=== PATIENT | female | born 1995 | race Caucasian/White ===

== ENCOUNTER 2022-09-27 08:30 | Emergency (ER) | payer OTHER, SELFPAY ==
[2022-09-27 08:43] VITALS: BP 131/100; PULSE 77; TEMP 36.7; O2SAT 98; BMI 35.6
--- NOTE | 2022-09-27 08:54 | CRLHL7_ITS ---
For Patients: As a result of the Century Cures Act, medical imaging exams and procedure reports are released immediately into your electronic medical record. You may view this report before your referring provider. If you have questions, please contact your health care provider. INDICATION: Left flank pain TECHNIQUE: Axial images were obtained from the diaphragm to the pubic symphysis. Reformats were obtained in the coronal and sagittal plane. IV Contrast: None Oral Contrast: None COMPARISON: None. FINDINGS: Lower chest: Unremarkable. Liver: Unremarkable. Normal in size and attenuation. No masses. Gallbladder and bile ducts: Unremarkable. No stones or inflammation. No biliary dilatation. Spleen: Unremarkable. Normal in size without mass. Pancreas: Unremarkable. No mass or inflammation. Adrenal glands: Unremarkable. No nodules. Kidneys: Nephrolithiasis. 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 Obstructing distal left ureteral stone measuring 5 x 3 millimeters. Vasculature: Unremarkable. GI tract: The stomach is unremarkable. No dilated loops of large or small intestine. Unremarkable appendix. Pelvis: Left ovarian simple cyst measuring 3.5 centimeters. Bones: Unremarkable for age. IMPRESSION: 1. Nephrolithiasis. 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 2. Simple left ovarian cyst measuring 3.5 centimeters. Please note that all CT scans at this facility use dose modulation, iterative reconstruction, and/or weight-based dosing when appropriate to reduce radiation dose to as low as reasonably achievable. Dictated by Jamison Ortega MD @ 09/27/2022 11:25:30 AM (Electronically Signed)
--- NOTE | 2022-09-27 09:09 | ED_ITS ---
HPI - General Adult General Time Seen by Provider: 09:10 Date Seen: 09/27/22 Chief complaint: Flank Pain Stated complaint: L side pain Time Seen by Provider: 09/27/22 08:34 Source: patient Mode of arrival: ambulatory Limitations: no limitations History of Present Illness HPI narrative: Patient is a 27 year white female with a history of kidney stones who presents with left flank pain at about 1 this morning. It has been bothering since, radiates a little bit around the left side to the anterior abdomen, denies . Reports her last menstrual cycle was about 2 and half to 3 weeks ago. She has had no other symptoms no real nausea no vomiting pain has been intermittent waxing waning, talk to find a comfortable position. No hematuria. Related Data Home Medications Medication Instructions Recorded Confirmed tirzepatide 10 mg/0.5 mL 5 mg subcut QWEEK 09/27/22 09/27/22 subcutaneous pen injector (Abigail) Previous Rx's Medication Instructions Recorded hydrocodone 5 mg-acetaminophen 325 1.5 tab PO Q8H PRN pain #20 tabs 09/27/22 mg tablet hydrocodone 7.5 mg-acetaminophen 1 tab PO Q8H PRN pain #14 tabs 09/27/22 325 mg tablet ketorolac 10 mg tablet 10 mg PO Q8H PRN pain 3 days #14 09/27/22 tabs Allergies Allergy/AdvReac Type Severity Reaction Status Date / Time morphinie AdvReac Uncoded 09/27/22 08:42 Review of Systems Status of ROS: Reports: 6 or more systems reviewed and unremarkable except as noted in History and below PFSH PFSH Social History Smoking Status: Never smoker Do you use any of these nicotine containing products: None Second hand tobacco smoke exposure: No How often do you have a drink containing alcohol: never How often do you have six or more drinks on one occasion: Never AUDIT-C Alcohol total score: 0 Non-prescribed substance use: denies use service: No Exam Narrative: Exam Narrative: Objective in no marked distress Vital signs unremarkable other than slightly elevated diastolic pressure HEENT unremarkable Pulse regular Abdomen benign soft nontender and Negative CVA tenderness Extremities normal neurologic nonfocal good peripheral perfusion noted Const: Vital Signs, click to edit/add: Vital Signs - 24 hr 09/27/22 08:43 09/27/22 11:22 09/27/22 12:07 Temperature 98.0 F 98.0 F 98.0 F Pulse Rate [Pulse Oximeter] 77 90 75 Respiratory Rate 16 16 Blood Pressure [Le ft Upper Arm] 131/100 H 134/85 138/68 Pulse Oximetry 98 98 99 Oxygen Delivery Me thod Room Air Room Air Room Air Course Vital Signs Vital signs: Initial Vital Signs Temperature 98.0 F 09/27/22 08:43 Temperature Source Temporal Artery Scan 09/27/22 08:43 Pulse Rate 77 09/27/22 08:43 Pulse Rhythm Regular 09/27/22 08:43 Blood Pressure 131/100 H 09/27/22 08:43 Blood Pressure Mean 110 09/27/22 08:43 Pulse Oximetry 98 09/27/22 08:43 Oxygen Delivery Method Room Air 09/27/22 08:43 Vital Signs Temperature 98.0 F 09/27/22 08:43 Pulse Rate 77 09/27/22 08:43 Blood Pressure 131/100 H 09/27/22 08:43 Pulse Oximetry 98 09/27/22 08:43 Oxygen Delivery Method Room Air 09/27/22 08:43 Temperature 98.0 F 09/27/22 12:07 Pulse Rate 75 09/27/22 12:07 Respiratory Rate 16 09/27/22 12:07 Blood Pressure 138/68 09/27/22 12:07 Pulse Oximetry 99 09/27/22 12:07 Oxygen Delivery Method Room Air 09/27/22 12:07 Medical Decision Making MDM Narrative Medical decision making narrative: 27 year white female with history of left flank pain for several hours duration, history of urolithiasis. Likely recurrent stone. Rule out , rule out electrolyte abnormality urinalysis abnormality, rule out pyelonephritis. Patient will get a CT scan unenhanced abdomen her test is negative. Disposition pending findings. Will give IV Toradol when able and fluid. Lab Data Labs: Lab Results 09/27/22 Range/Units 09:13 WBC 8.50 (4.50-11.00) K/uL RBC 4.37 (4.00-5.20) m/uL Hgb 12.7 (12.0-16.0) gm/dL Hct 39.1 (33.0-51.0) % MCV 90 (80-100) fL MCH 29 (26-34) pg MCHC 33 (32-36) gm/dL RDW Coeff of Margarito 12.2 (11.5-15.5) % Plt Count 249 (140-440) K/uL Neut % (Auto) 80.3 H (42.0-72.0) % Lymph % (Auto) 13.5 L (20-44) % [place] % (Auto) 5.1 (0.0-11.0) % Eos % (Auto) 0.8 (0.0-7.0) % Baso % (Auto) 0.2 (0.0-3.0) % Neut # (Auto) 6.80 (1.7-7.0) K/uL Lymph # (Auto) 1.10 (0.90-2.90) K/uL [place] # (Auto) 0.40 (0.00-0.90) K/UL Eos # (Auto) 0.07 (0.00-0.50) K/uL Baso # (Auto) 0.02 (0.00-0.30) K/uL Sodium 135 (135-149) mmol/L Potassium 4.1 (3.6-5.1) mmol/L Chloride 106 (96-114) mmol/L Carbon Dioxide 21 (20-32) mmol/L BUN 13 (5-24) mg/dL Creatinine 0.7 (0.5-1.5) mg/dL Estimated Creat Clear 141.15 Estimated GFR 120 ml/min Glucose 88 (60-115) mg/dL Calcium 8.7 (8.4-10.6) mg/dL Total Bilirubin 1.0 (0.1-1.5) mg/dL Direct Bilirubin 0.3 (0.0-0.5) mg/dL AST 22 (12-35) U/L ALT 20 (4-35) U/L Alkaline Phosphatase 79 (40-150) U/L C-Reactive Protein 0.8 (0.5-1.0) mg/dL Total Protein 7.5 (6.0-8.3) g/dL Albumin 4.3 (3.3-5.0) g/dL HCG, Quant < 2.39 mIU/mL Urine Color Yellow (Yellow) Urine Appearance Clear (Clear) Urine pH 7.0 (5.0-8.5) Ur Specific [place] 1.025 (1.000-1.030) Urine Protein Negative (Negative) Urine Glucose (UA) Negative (Negative) Urine Ketones 3+ A (Negative) Urine Blood 1+ A (Negative) Urine Nitrite Negative (Negative) Urine Bilirubin Negative (Negative) Urine Urobilinogen 0.2 (0.2-1.0) Ur Leukocyte Esterase Negative (Negative) Urine RBC 2-5 A (0-2) Urine WBC 2-5 (0-5) Ur Squamous Epith Cells Moderate A (None-Few) Amorphous Sediment Moderate A (None) Urine Bacteria Moderate A (None) Discharge Plan Discharge Clinical Impression: Acute left flank pain, Urolithiasis Patient Disposition: Home w/ Parent or Adult Condition: Improved Additional Instructions: Light activity, push fluids, strain urine for 48 hours, take narcotic and Toradol as needed. Cautioned about side effects from any of the medications. Return if problems or concerns or recurrent pain. Please give urine strainer Activity Level: Light activity Discharge Diet: Regular Prescriptions: New ketorolac 10 mg tablet 10 mg PO Q8H PRN (Reason: pain) 3 Days Qty: 14 0RF hydrocodone-acetaminophen 7.5-325 mg tablet 1 tab PO Q8H PRN (Reason: pain) Qty: 14 0RF hydrocodone-acetaminophen 5-325 mg tablet 1.5 tab PO Q8H PRN (Reason: pain) Qty: 20 0RF No Action Mounjaro 10 mg/0.5 mL pen injector 5 mg subcut QWEEK Stand Alone Forms: MyHealth Info Instructions
[2022-09-27] MEDS: KETOROLAC 30 MG/ML inj IVP (09:22)
[2022-09-27] MEDS: 0.9 % SODIUM CHLORIDE 1000 ml 1,000 ML 6000 ML IV (09:22)
[2022-09-27 09:24] LABS: Basophils Absolute Auto 0.02 K/uL (0.00-0.30); Basophils Percent Auto 0.2 % (0.0-3.0); Eosinophils Absolute Auto 0.07 K/uL (0.00-0.50); Eosinophils Percent Auto 0.8 % (0.0-7.0); Hematocrit 39.1 % (33.0-51.0); Hemoglobin* 12.7 gm/dL (12.0-16.0); Immature Granulocytes Abs Auto 0.01 K/uL (0.00-0.30); Immature Granulocytes Pct Auto 0.1 %; Lymphocytes Percent Auto 13.5 % (20-44); Mean Corpuscular HGB Conc 33 gm/dL (32-36); Mean Corpuscular Hemoglobin 29 pg (26-34); Mean Corpuscular Volume 90 fL (80-100); Monocytes Percent Auto 5.1 % (0.0-11.0); Neutrophils Percent Auto 80.3 % (42.0-72.0); Platelet Count* 249 K/uL (140-440); RDW Coefficient of Variation % 12.2 % (11.5-15.5); Red Blood Count 4.37 m/uL (4.00-5.20)
[2022-09-27 09:25] LABS: Appearance Urine Clear (Clear); Bilirubin Urine Negative (Negative); Blood Urine 1+ (Negative); Color Urine Yellow (Yellow); Glucose Urine Negative (Negative); Ketones Urine 3+ (Negative); Leukocyte Esterase Urine Negative (Negative); Nitrite Urine Negative (Negative); Protein Urine Negative (Negative); Specific Gravity Urine 1.025 (1.000-1.030); Urobilinogen Urine 0.2 (0.2-1.0)
[2022-09-27 09:32] LABS: Slide Review Reflex No
[2022-09-27 09:36] LABS: Amorphous Sediment Urine Moderate; Bacteria Urine Moderate; Squamous Epithelial Cell Urine Moderate (None-Few)
[2022-09-27 09:37] LABS: Chloride* 106 mmol/L (96-114); Potassium* 4.1 mmol/L (3.6-5.1); Sodium* 135 mmol/L (135-149)
[2022-09-27 09:39] LABS: Albumin* 4.3 g/dL (3.3-5.0)
[2022-09-27 09:40] LABS: Creatinine* 0.7 mg/dL (0.5-1.5); Est. Creatinine Clearance* 141.15; Estimated Glomerular Filt Rate 120 ml/min
[2022-09-27 09:41] LABS: Bilirubin Direct* 0.3 mg/dL (0.0-0.5); Blood Urea Nitrogen* 13 mg/dL (5-24); Calcium* 8.7 mg/dL (8.4-10.6); Carbon Dioxide* 21 mmol/L (20-32); Glucose* 88 mg/dL (60-115); Total Protein* 7.5 g/dL (6.0-8.3)
[2022-09-27 09:42] LABS: Alanine Aminotransferase* 20 U/L (4-35); Alkaline Phosphatase* 79 U/L (40-150); Aspartate Amino Transferase* 22 U/L (12-35)
[2022-09-27 09:44] LABS: C Reactive Protein* 0.8 mg/dL (0.5-1.0)
[2022-09-27 10:04] LABS: HCG Quantitative* < 2.39 mIU/mL
--- NOTE | 2022-09-27 11:21 | PC.NURSE ---
Pt c/o left flank pain increasing, reports at an 8/10. Verbal order per physician (Dr. Browning).
[2022-09-27 11:22] VITALS: BP 134/85; PULSE 90; RESP 16; TEMP 36.7; O2SAT 98
[2022-09-27 12:07] VITALS: BP 138/68; PULSE 75; RESP 16; TEMP 36.7; O2SAT 99
--- NOTE | 2022-09-27 12:36 | ED.NURSE ---
accessed chart. Received a call from patients pharmacy stating they did not have 7.5hydrocodone/325mg tylenol. They only have 5mg/325mg in stock. Dr. Browning notified and will switch prescriptions.
== END 2022-09-27 12:09 | disposition home or self-care (01) ==
PROVIDERS: Emergency Provider Family Medicine
DX: N20.9 Urinary calculus, unspecified (principal); R10.9 Unspecified abdominal pain
CPT/HCPCS: 36415; 74176; 80048; 80076; 81001; 84702; 85025; 86140; 87086; 96374; 96375; 99284; J1885; J7030

== ENCOUNTER 2023-09-11 13:00 | Outpatient (CLI) | payer OTHER, SELFPAY | END 2023-09-11 13:01 | disposition home or self-care (01) | PROVIDERS: PCP Nurse Practitioner Family; Visit Provider Obstetrics & Gynecology | DX: O20.9 Hemorrhage in early pregnancy, unspecified (principal) | CPT/HCPCS: 84702; 86850; 86900; 86901 ==

== ENCOUNTER 2023-09-13 16:08 | Outpatient (CLI) | payer OTHER, SELFPAY ==
--- OUTSIDE RECORDS SUMMARY | 2023-09-21 12:14 | XMS_ITS ---
Author Name Unknown Organization [facility] Address [address] [place] [address] Care Team Providers Care Diamond Selector Name Role Phone Unavailable Unavailable Unavailable Surgery Details Not on file Complications Check Surgery Details section. Procedure Estimated Blood Loss Check Surgery Details section. Procedure Findings Check Surgery Details section. Procedure Specimens Taken Check Surgery Details section.
--- OUTSIDE RECORDS SUMMARY | 2023-09-21 12:14 | XMS_ITS | Clinical Summary ---
Author Name Unknown Organization [facility] Address [address] [place] [address] Care Team Providers Care Artificial Breeding Ranch Supervisor Name Role Phone Elsewhere, Pcp Primary Care Provider Unavailabl e Source Comments Patient records contain information from all sites at [facility]. For routine questions regarding patient records, call [phone] during business hours, M-F 8:00 AM - 5:00 PM Central Time. Record requests for emergency care only can be directed to [phone] at any time.[facility] Allergies No known active allergies Medications Medication Sig Dispensed Refills Start Date End Date Status valACYclovir (VALTREX) 1000 mg tablet Take 2,000 mg by mouth 2 (two) times a day. 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 Family History 09/04/2017 Immunizations Name Administration Dates Next Due HepB, Unspecified 05/17/2000,12/06/1999,11/03/19 00 Influenza Split 05/07/2017,01/21/2013 MMR 05/17/2000,05/17/1994 OPV 11/30/1997, 4,1993,1992 SARS-COV-2 (COVID-19) - PFIZ ER (Discontinued)(12 years or older) 07/26/2020,07/01/2020 MICHAEL 01/21/2013,11/03/1999 influenza vaccine quad (FLUZONE/FLUARIX) (6 months and older)(PF) 04/10/2023,03/22/2022,04/05/2021,2019,04/09/2019 Social History Tobacco Use Types Packs/Day Years Used Date Smoking Tobacco: Never Smokeless Tobacco: Never Humiliation, Afraid, Rape, and Kick questionnair e Answer Date Recorded Within the last year, have y ou been afraid of your partner or ex-partner? No 12/11/2022 Within the last year, have y ou been humiliated or emotionally abused in other ways by your partner or ex-partner? No Within the last year, have y ou been kicked, hit, slapped, or otherwise physically hurt by your partner or ex-partner? No 12/11/2022 Within the last year, have y ou been raped or forced to have any kind of sexual activity by your partner or ex-partner? No 12/11/2022 Overall Financial Resource Strain (CARDIA) Answe r Date Recorded How hard is it for you to pa y for the very basics like food, housing, medical care, and heating? Not hard at all 12/11/2022 Exercise Vital Sign Answer Date Recorde d On average, how many days pe r week do you engage in moderate to strenuous exercise (like a brisk walk)? 5 days 12/11/2022 On average, how many minutes do you engage in exercise at this level? 30 min 12/11/2022 Hunger Vital Sign Answer Date Recorded Within the past 12 months, y ou worried that your food would run out before you got the money to buy more. Never true 12/12/19 23 Within the past 12 months, t he food you bought just didn't last and you didn't have money to get more. Never true 12/11/2022 PRAPARE - Transportation Answer Date Re corded In the past 12 months, has l ack of transportation kept you from medical appointments or from getting medications? No 11/17 In the past 12 months, has l ack of transportation kept you from meetings, work, or from getting things needed for daily living? No 12/11/2022 Nutrition Answer Date Recorded Nutrition: EVOO Fat Source Unknown 12/11 On average, how many serving s of fruits and vegetables do you eat per day (serving size is equal to 1 cup or approximately the size of a tennis ball)? 3-5 12/11/2022 Dental Answer Date Recorded Dental: Regular Dentist Yes 12/12/19 Employment Answer Date Recorded Employment status Employed and actively working without restrictions 12/11/2022 Housing Stability Answer Date Recorded What is your living situation today? I have a 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 Sexual Orientation Straight 12/11/2022 12 :18 PM CDT Last Filed Vital Signs Vital Sign Reading Time Taken Comments Blood Pressure 122/84 03/08/2021 3:49 PM CDT Pulse 83 03/08/2021 3:49 PM CDT Temperature 37.2 ??C (99 ??F) 03/08/2021 3:49 PM CDT Respiratory Rate 18 03/08/2021 3:49 PM CDT Oxygen Saturation 98% 03/08/2021 3:49 PM CDT Inhaled Oxygen Concentration - - Weight 159 kg (349 lb 13.9 oz) 03/08/2021 3:49 P M CDT Height 171.8 cm (5' 7.64) 09/04/2017 8:11 AM CD T Body Mass Index 53.77 09/04/2017 8:11 AM CDT Plan of Treatment Health Maintenance Due Date Last Done Comments Cervical Cancer Screening 1993 HIV Screening 1993 Hepatitis C Screening 1993 HPV Vaccines (3 - 3-dose series) 07/27/2014 05/04/2014, 01/21/2013 COVID-19 Vaccine (3 - 2022-24 season) 2023 07/26/2020, 07/01/2020 Depression Screening (Annual PHQ-2) 06/18/2023 DTaP,Tdap,and Td Vaccines (8 - Td or Tdap) 11/07/2032 11/07/2022, 01/21/2013, 08/15/2004, Additional history exists Hepatitis B Vaccines Completed 05/17/2000, 12/06/1999, 11/03/1999 Varicella Vaccines Completed 01/21/2013, 11/03/1999 Influenza Vaccine Completed 04/10/2023, , 04/05/2021, Additional history exists Pneumococcal vaccine (0-64 years) Aged Out No longer eligible based on patient's age to complete this topic Care Teams Artificial Breeding Ranch Supervisor Relationship Specialty Start Date End Date Elsewhere, Pcp PCP - General Internal Medicine 08/24/21
--- OUTSIDE RECORDS SUMMARY | 2023-09-21 12:14 | XMS_ITS | Referral Summary ---
Author Name Unknown Organization [facility] Address [address] [place] [address] Care Team Providers Care Fuse Assembler Name Role Phone Elsewhere, Pcp Primary Care Provider Unavailabl e Source Comments Patient records contain information from all sites at [facility]. For routine questions regarding patient records, call [phone] during business hours, M-F 8:00 AM - 5:00 PM Central Time. Record requests for emergency care only can be directed to [phone] at any time.[facility] Allergies No known active allergies Medications Medication [...] your living situation today? I have a [facility] place to live 12/11/2022 Sex and Gender Information Value Date Recorded Sex Assigned at Female 12/11/2022 12:18 PM CDT Gender Identity Female 06/25/2020 3:31 PM DORR OPERATOR Sexual Orientation Straight 12/11/2022 12 :18 PM [...] 09/04/2017 8:11 AM CDT Plan of Treatment Not on file Care Teams Fuse Assembler Relationship Specialty Start Date End Date Elsewhere, Pcp PCP - General Internal Medicine 08/24/21
== END 2023-09-13 16:09 | disposition home or self-care (01) ==
LOC: NFLDREF 09-14 09:00
PROVIDERS: PCP Nurse Practitioner Family; Referring Provider Nurse Practitioner Family; Visit Provider Obstetrics & Gynecology
DX: O20.9 Hemorrhage in early pregnancy, unspecified (principal); R39.9 Unspecified symptoms and signs involving the genitourinary system
CPT/HCPCS: 84702

== ENCOUNTER 2023-10-09 15:47 | Outpatient (CLI) | payer OTHER, SELFPAY ==
--- OUTSIDE RECORDS SUMMARY | 2023-10-09 15:51 | XMS_ITS | Clinical Summary ---
Author Name Unknown Organization [facility] Address [address] [place] [address] Care Team Providers Care Direct Support Professional Caregiver Name Role Phone Elsewhere, Pcp Primary Care Provider Unavailabl e Source Comments Patient records contain information from all sites at [facility]. For routine questions regarding patient records, call [phone] during business hours, M-F 8:00 AM - 5:00 PM Central Time. Record requests for emergency care only can be directed to [phone] at any time.[facility] Allergies No known active allergies Medications Medication Sig Dispensed Refills Start Date End Date Status valACYclovir (VALTREX) 1000 mg tablet Take 2,000 mg by mouth 2 (two) times a day. 12/25/2020 Active Aviane 0.1-20 mg-mcg per tablet [...] your living situation today? I have a [facility] place to live 12/11/2022 Sex and Gender Information Value Date Recorded Sex Assigned at Female 12/11/2022 12:18 PM CDT Gender Identity Female 06/25/2020 3:31 PM SOLUTIONS ENGINEER Sexual Orientation Straight 12/11/2022 12 :18 PM [...] age to complete this topic Care Teams Direct Support Professional Caregiver Relationship Specialty Start Date End Date Elsewhere, Pcp PCP - General Internal Medicine 08/24/21
--- OUTSIDE RECORDS SUMMARY | 2023-10-09 15:52 | XMS_ITS | Referral Summary ---
Author Name Unknown Organization [facility] Address [address] [place] [address] Care Team Providers Care Finishing Wire Sawyer Name Role Phone Elsewhere, Pcp Primary Care Provider Unavailabl e Source Comments Patient records contain information from all sites at [facility]. For routine questions regarding patient records, call [phone] during business hours, M-F 8:00 AM - 5:00 PM Central Time. Record requests for emergency care only can be directed to [phone] at any time.[facility] Allergies No known active allergies Medications [...] your living situation today? I have a [facility] place to live 12/11/2022 Sex and Gender Information Value Date Recorded Sex Assigned at Female 12/11/2022 12:18 PM CDT Gender Identity Female 06/25/2020 3:31 PM TC OPERATOR Sexual Orientation Straight 12/11/2022 12 :18 [...] of Treatment Not on file Care Teams Finishing Wire Sawyer Relationship Specialty Start Date End Date Elsewhere, Pcp PCP - General Internal Medicine 08/24/21
--- OUTSIDE RECORDS SUMMARY | 2023-10-09 15:52 | XMS_ITS ---
Author Name Unknown Organization [facility] Address [address] [place] [address] Care Team Providers Care Tester Rocket Engine Name Role Phone Unavailable Unavailable Unavailable Surgery Details Not on file Complications Check Surgery Details section. Procedure Estimated Blood Loss Check Surgery Details section. Procedure Findings Check Surgery Details section. Procedure Specimens Taken Check Surgery Details section.
--- NOTE | 2023-10-09 16:00 | US_ITS ---
Patient: EMMA SAENZ Facility:?[facility] Patient ID:?[id number] Site Patient ID:?[id number]. Site :?1995 Study:?US-OB Pelvis TV OB<14wks-10/09/2023 5:08:31 PM Ordering Physician:?Shahla Watkins Final Report: OB ULTRASOUND TRANSVAGINAL LMP: 08/08/2023. VIRY by LMP: 05/14/2024. . P: 6. Single. INDICATION: Dates and viability. CRL: 2.50 cm, 9 w, 1 d. VIRY: 05/12/2024. FHR: 165 bpm. GESTATIONAL SAC: 3.1 cm. YOLK SAC: 2.50 mm. RIGHT OVARY: Within normal limits 3.1 x 2.0 x 2.2 cm LEFT OVARY: Within normal limits 3.9 x 2.7 x 2.7 cm. IMPRESSION: 1. Single viable intrauterine . 2. Measurements are consistent with dates. CHRISTIANA MCKEON M.D. RUSSELLG:jon D& [email or web address] be/Dictated by: Christiana Mckeon MD @ 10/10/2023 10:54:00 AM Signed by:?Christiana Mckeon MD @10/10/2023 4:45:49 PM (Electronic Signature)
== END 2023-10-09 15:48 | disposition home or self-care (01) ==
LOC: US 15:50
PROVIDERS: PCP Nurse Practitioner Family; Visit Provider Registered Nurse
DX: Z34.91 Encounter for supervision of normal pregnancy, unspecified, first trimester (principal); Z3A.08 8 weeks gestation of pregnancy
CPT/HCPCS: 76817; 86703; 86706; 86803; 87086; 87340; 87491; 87591

== ENCOUNTER 2023-10-09 17:27 | Outpatient (CLI) | payer OTHER, SELFPAY ==
--- OUTSIDE RECORDS SUMMARY | 2023-10-09 17:29 | XMS_ITS | Referral Summary ---
Author Name Unknown Organization [facility] Address [address] [place] [address] Care Team Providers Care Commissary Officer Name Role Phone Elsewhere, Pcp Primary Care Provider Unavailabl e Source Comments Patient records contain information from all sites at [facility]. For routine questions regarding patient records, call [phone] during business hours, M-F 8:00 AM - 5:00 PM Central Time. Record requests for emergency care only can be directed to [phone] at any time.[facility] Allergies No known active allergies Medications Medication [...] your living situation today? I have a [facility] place to live 12/11/2022 Sex and Gender Information Value Date Recorded Sex Assigned at Female 12/11/2022 12:18 PM CDT Gender Identity Female 06/25/2020 3:31 PM ROBOTYPE OPERATOR Sexual Orientation Straight 12/11/2022 12 :18 [...] of Treatment Not on file Care Teams Commissary Officer Relationship Specialty Start Date End Date Elsewhere, Pcp PCP - General Internal Medicine 08/24/21
--- OUTSIDE RECORDS SUMMARY | 2023-10-09 17:29 | XMS_ITS ---
Author Name Unknown Organization [facility] Address [address] [place] [address] Care Team Providers Care Construction Project Assistant Name Role Phone Unavailable Unavailable Unavailable Surgery Details Not on file Complications Check Surgery Details section. Procedure Estimated Blood Loss Check Surgery Details section. Procedure Findings Check Surgery Details section. Procedure Specimens Taken Check Surgery Details section.
--- OUTSIDE RECORDS SUMMARY | 2023-10-09 17:29 | XMS_ITS | Clinical Summary ---
Author Name Unknown Organization [facility] Address [address] [place] [address] Care Team Providers Care Car Ferry Master Name Role Phone Elsewhere, Pcp Primary Care Provider Unavailabl e Source Comments Patient records contain information from all sites at [facility]. For routine questions regarding patient records, call [phone] during business hours, M-F 8:00 AM - 5:00 PM Central Time. Record requests for emergency care only can be directed to [phone] at any time.[facility] Allergies No known active allergies Medications Medication [...] your living situation today? I have a [facility] place to live 12/11/2022 Sex and Gender Information Value Date Recorded Sex Assigned at Female 12/11/2022 12:18 PM CDT Gender Identity Female 06/25/2020 3:31 PM SUPERINTENDENT GENERAL Sexual Orientation Straight 12/11/2022 12 :18 PM [...] age to complete this topic Care Teams Car Ferry Master Relationship Specialty Start Date End Date Elsewhere, Pcp PCP - General Internal Medicine 08/24/21
[2023-10-09 21:54] LABS: Chlamydia DNA Amplified* NOT DETECTED (No Detected); GC DNA Amplified* NOT DETECTED (No Detected)
== END 2023-10-09 17:28 | disposition home or self-care (01) ==
PROVIDERS: PCP Nurse Practitioner Family; Visit Provider Registered Nurse
DX: Z34.90 Encounter for supervision of normal pregnancy, unspecified, unspecified trimester (principal)
CPT/HCPCS: 86592; 86703; 86704; 86706; 86762; 86787; 86803; 87086; 87340; 87491; 87591

== ENCOUNTER 2023-10-18 05:31 | Emergency (ER) | payer OTHER, SELFPAY ==
[2023-10-18 05:47] VITALS: BP 130/79; PULSE 85; RESP 20; TEMP 36.7; O2SAT 99; BMI 35.9
--- NOTE | 2023-10-18 06:03 | ED_ITS ---
HPI - General Adult General Chief complaint: Vaginal Bleeding Stated complaint: 10 weeks , bleeding Time Seen by Provider: 10/18/23 06:02 History of Present Illness HPI narrative: Blood type O positive, negative antibody screen performed in August. Ultrasound last week reviewed consistent with 9 week normal gestation, single IUP. 28-year-old female, primary gravid presents to the emergency department for evaluation of vaginal bleeding with some clots that started this morning. Has eased up since she got to the emergency department. No dizziness or lightheadedness, no trauma. No dysuria or abnormal vaginal discharge. No fever vomiting. Had some spotting very early in from weeks 4-7, had an ultrasound about 10 days ago. Ultrasound showed a single christopher IUP. She has no cramping. No anticoagulants, no history of known coagulopathy. Did not try taking any medication prior to coming to ED. Past medical history benign, denies major long-term health problems, no long- term prescription medications. Allergies to morphine which causes vomiting which would be considered an intolerance. Nonsmoker. ROS notable for the vaginal bleeding, otherwise denies times 12 systems. Related Data Home Medications Medication Instructions Recorded Confirmed cholecalciferol (vitamin D3) 25 25 mcg PO QDAY 10/09/23 10/18/23 mcg (1,000 unit) capsule docosahexaenoic acid 200 mg 200 mg PO DAILY 10/09/23 10/18/23 capsule ( DHA) Allergies Allergy/AdvReac Type Severity Reaction Status Date / Time morphine AdvReac Intermediate Vomiting Verified 10/18/23 05:51 PFSH PFS Medical History History of kidney stones (2012) ?Z87.442 - Personal history of urinary calculi (ICD-10) Family History Mother Breast cancer Maternal Grandmother Breast cancer Grandfather Stroke Diabetes Father High blood pressure Sister Bipolar disorder Social History What is your current living situation?: I presently have a place to live Problems where you live: no known problems In the past 12 months, utilities in danger of being shut off: no In past 12 months, lack of transportation kept you from medical appts, meetings, work, or getting things needed for daily living: no In the past 12 mos, have been you worried that your food would run out before you had money to buy more?: never true In the past 12 mos, the food you bought just didn't last and you didn't have money to buy more?: never true Smoking Status: Never smoker Do you use any of these nicotine containing products: None Second hand tobacco smoke exposure: No How often do you have a drink containing alcohol: never How often do you have six or more drinks on one occasion: Never AUDIT-C Alcohol total score: 0 Non-prescribed substance use: denies use How often does anyone, including family, friends and others, physically hurt you : never How often does anyone, including family, friends and others, insult or talk down to you: never How often does anyone, including family, friends and others, threaten you with harm: never How often does anyone, including family, friends and others, scream or curse at you: never Little interest or pleasure in doing things: not at all Feeling down, depressed, or hopeless: several days service: No Exam Const: Vital Signs, click to edit/add: Vital Signs - 24 hr 10/18/23 05:47 Temperature 98.0 F Pulse Rate [Right Pulse Oximeter] 85 Respiratory Rate 20 Blood Pressure [Ri ght Upper Arm] 130/79 Pulse Oximetry 99 Oxygen Delivery Me thod Room Air Documenting provider has reviewed patient's vital signs: yes Common normals: no apparent distress General appearance: cooperative and well kempt HENMT: Common normals: normocephalic Head and scalp: normocephalic Face and sinus: normal facial exam Eye: General eye: normal appearance of both eyes Neck & C-Spine: General: normal visual inspection Resp: Common normals: normal respiratory effort, no use of accessory muscles and clear to auscultation bilaterally Effort & inspection: able to speak in complete sentences Auscultation: clear to auscultation bilaterally Cardio: Common normals: regular rate, regular rhythm, S1 normal heart sound, S2 normal heart sound and no murmurs Rate: regular rate Rhythm: regular rhythm Heart sounds: S1 normal and S2 normal GI: Common normals: Normal to inspection, nondistended, normoactive bowel sounds present, soft to palpation, non-tender, no hepatosplenomegaly and no masses Palpation: soft and no hepatosplenomegaly : Other: Scant blood streaked mucus from closed cervical os. Vaginal lowry, external genitals normal with no signs of trauma. No parts seen in vaginal vault, no clots in vault. Extremity: Common normals: normal capillary refill Psych: Appearance: well kempt Attitude: engaged Activity/motor behavior: appropriate eye contact Insight: insight good Judgement: judgment good Skin: Common normals: no rashes or lesions noted General skin exam: no rashes or lesions noted Course Course ED Course: Bedside ultrasound used to quickly assess health status. Single christopher IUP with heart tones noted. The bit of a difficult exam due to body habitus, transvaginal ultrasound would be better. 28-year-old female with threatened miscarriage. Rh positive blood type, tendon half weeks gestation. Differential diagnosis including miscarriage, unexplained bleeding, infection, subchorionic hemorrhage, among others. Will obtain hCG level and CBC. Formal ultrasound. Suspect discharge with OB follow-up. Reevaluation(s) Time of Reevaluation #1: 07:23 Reevaluation #1: Hemoglobin reassuring, bleeding has ceased. Ultrasound reassuring. There was a small perigestational or subchorionic hemorrhage seen on ultrasound. This was likely the source of the bleeding. Overall very reassuring. Again patient Rh positive. Threatened miscarriage, alarm symptoms reviewed and discussed. Will call her Ob provider when the office opens today and really the findings, they will decide if she needs to be seen in follow-up sooner. Nothing per vagina for the next 48 hours, okay to take Tylenol as needed. Patient verbalizes understanding and agreement I will not have her wait to run a dilution on the clot level. This is only to be used in case the Ob provider needs a comparison. Vital Signs Vital signs: Initial Vital Signs Temperature 98.0 F 10/18/23 05:47 Temperature Source Temporal Artery Scan 10/18/23 05:47 Pulse Rate 85 10/18/23 05:47 Respiratory Rate 20 10/18/23 05:47 Blood Pressure 130/79 10/18/23 05:47 Blood Pressure Mean 96 10/18/23 05:47 Blood Pressure Position Sitting 10/18/23 05:47 Pulse Oximetry 99 10/18/23 05:47 Oxygen Delivery Method Room Air 10/18/23 05:47 Vital Signs Temperature 98.0 F 10/18/23 05:47 Pulse Rate 85 10/18/23 05:47 Respiratory Rate 20 10/18/23 05:47 Blood Pressure 130/79 10/18/23 05:47 Pulse Oximetry 99 10/18/23 05:47 Oxygen Delivery Method Room Air 10/18/23 05:47 Temperature 98.0 F 10/18/23 05:47 Pulse Rate 85 10/18/23 05:47 Respiratory Rate 20 10/18/23 05:47 Blood Pressure 130/79 10/18/23 05:47 Pulse Oximetry 99 10/18/23 05:47 Oxygen Delivery Method Room Air 10/18/23 05:47 Medical Decision Making Lab Data Lab results reviewed: Yes I reviewed the patient's lab results Lab results narrative: HCG pending but will be discharged. Based on the size of that may be at a healthy things look, will likely require dilution. Labs: Lab Results 10/18/23 Range/Units 06:58 WBC 7.09 (4.50-11.00) K/uL RBC 4.22 (4.00-5.20) m/uL Hgb 12.5 (12.0-16.0) gm/dL Hct 39.1 (33.0-51.0) % MCV 93 (80-100) fL MCH 30 (26-34) pg MCHC 32 (32-36) gm/dL RDW Coeff of Margarito 13.1 (11.5-15.5) % Plt Count 210 (140-440) K/uL Neut % (Auto) 74.0 H (42.0-72.0) % Lymph % (Auto) 19.7 L (20-44) % [place] % (Auto) 4.9 (0.0-11.0) % Eos % (Auto) 1.0 (0.0-7.0) % Baso % (Auto) 0.3 (0.0-3.0) % Neut # (Auto) 5.20 (1.7-7.0) K/uL Lymph # (Auto) 1.40 (0.90-2.90) K/uL [place] # (Auto) 0.30 (0.00-0.90) K/UL Eos # (Auto) 0.07 (0.00-0.50) K/uL Baso # (Auto) 0.02 (0.00-0.30) K/uL Abs Immat Gran (auto) 0.01 (0.00-0.30) K/uL Imm/Tot Granulo (auto) 0.1 % Imaging Data Transvaginal ultrasound: Attestation: I have reviewed the pertinent imaging results. My impression: Mcdowell IUP with good heart tones Radiologist's impression: IMPRESSION: Mcdowell viable intrauterine with size and dates as above. Small perigestational hemorrhage. Discharge Plan Discharge Clinical Impression: Threatened miscarriage in early Patient Disposition: Home w/ Parent or Adult Condition: Improved Instructions: Threatened Miscarriage (ED) Additional Instructions: As we discussed, there was a small subchorionic hemorrhage next to the gestational sac. This certainly could have explained your bleeding episode. They can lead to a miscarriage but at this time, the baby looks to be growing and strong. This is as good of news as we could hope for. The hCG blood level will be back in a few hours, we do not need to wait for the results. As we discussed, it is only necessary as a means of guidance if the bleeding persists. Call your Ob provider today with an update. They will give you further instructions on watching for more bleeding, cramping or other management. I would recommend pelvic rest for the next 48 hours. It is okay to take Tylenol for any mild cramping or discomfort. Come to the emergency department if your soaking through more than 1 pad per hour, has severe weakness, high fever or other signs of complication. Activity Level: No Restrictions Discharge Diet: Regular Prescriptions: No Action DHA 200 mg capsule 200 mg PO DAILY cholecalciferol (vitamin D3) 25 mcg (1,000 unit) capsule 25 mcg PO QDAY Follow Up/Referrals: Loyda Ross PERFORMANCE INSTRUCTOR [Primary Care Provider] - Stand Alone Forms: [employer] Info Instructions
--- NOTE | 2023-10-18 06:23 | US_ITS ---
Patient: EMMA SAENZ Facility:?[facility] Patient ID:?[id number] Site Patient ID:?[id number]. Site :?1993 Study:?US-OB Pelvis -10/18/2023 7:00:07 AM Ordering Physician:AMEE LINDA Final Report: INDICATION: Bleeding in the setting of . COMPARISON: 10/09/2023 TECHNIQUE: Grayscale pelvic ultrasound via a transabdominal approach. FINDINGS: Gestational sac and number: 1 Sac size and shape: Normal shape. Small left perigestational hemorrhage. This measures 0.7 x 0.8 x 1.6 cm. Placenta: Not yet developed. Yolk sac: Present. Amniotic fluid: Subjectively normal. heart rate: 161bpm. CRL: 4.1cm. US EGA: 10 weeks 1 day US VIRY: 05/08/2024 Established VIRY: 05/14/2024 Uterus: No significant uterine findings. Right ovary: 1.9 cm peripheral cysts. Left ovary: Normal. IMPRESSION: Mcdowell viable intrauterine with size and dates as above. Small perigestational hemorrhage. Dictated by Aamir Yepez MD @ 10/18/2023 7:04:35 AM Signed by:?Aamir Yepez MD @10/18/2023 7:04:35 AM (Electronic Signature)
--- OUTSIDE RECORDS SUMMARY | 2023-10-18 06:29 | XMS_ITS | Referral Summary ---
Author Name Unknown Organization [facility] Address [address] [place] [address] Care Team Providers Care Escrow Assistant Name Role Phone Elsewhere, Pcp Primary Care Provider Unavailabl e Source Comments Patient records contain information from all sites at [facility]. For routine questions regarding patient records, call [phone] during business hours, M-F 8:00 AM - 5:00 PM Central Time. Record requests for emergency care only can be directed to [phone] at any time.[facility] Allergies No known active allergies Medications [...] your living situation today? I have a [facility] place to live 12/11/2022 Sex and Gender Information Value Date Recorded Sex Assigned at Female 12/11/2022 12:18 PM CDT Gender Identity Female 06/25/2020 3:31 PM NATURAL RESOURCES SPECIALIST Sexual Orientation Straight 12/11/2022 12 :18 PM [...] of Treatment Not on file Care Teams Escrow Assistant Relationship Specialty Start Date End Date Elsewhere, Pcp PCP - General Internal Medicine 08/24/21
--- OUTSIDE RECORDS SUMMARY | 2023-10-18 06:29 | XMS_ITS | Clinical Summary ---
Author Name Unknown Organization [facility] Address [address] [place] [address] Care Team Providers Care Pai Gow Dealer Name Role Phone Elsewhere, Pcp Primary Care Provider Unavailabl e Source Comments Patient records contain information from all sites at [facility]. For routine questions regarding patient records, call [phone] during business hours, M-F 8:00 AM - 5:00 PM Central Time. Record requests for emergency care only can be directed to [phone] at any time.[facility] Allergies No known active allergies Medications Medication [...] your living situation today? I have a [facility] place to live 12/11/2022 Sex and Gender Information Value Date Recorded Sex Assigned at Female 12/11/2022 12:18 PM CDT Gender Identity Female 06/25/2020 3:31 PM COPPER TAPPER Sexual Orientation Straight 12/11/2022 12 :18 PM [...] age to complete this topic Care Teams Pai Gow Dealer Relationship Specialty Start Date End Date Elsewhere, Pcp PCP - General Internal Medicine 08/24/21
--- OUTSIDE RECORDS SUMMARY | 2023-10-18 06:29 | XMS_ITS ---
Author Name Unknown Organization [facility] Address [address] [place] [address] Care Team Providers Care Boiler Mechanic Name Role Phone Unavailable Unavailable Unavailable Surgery Details Not on file Complications Check Surgery Details section. Procedure Estimated Blood Loss Check Surgery Details section. Procedure Findings Check Surgery Details section. Procedure Specimens Taken Check Surgery Details section.
[2023-10-18 07:04] LABS: Basophils Absolute Auto 0.02 K/uL (0.00-0.30); Basophils Percent Auto 0.3 % (0.0-3.0); Eosinophils Absolute Auto 0.07 K/uL (0.00-0.50); Hematocrit 39.1 % (33.0-51.0); Hemoglobin* 12.5 gm/dL (12.0-16.0); Immature Granulocytes Abs Auto 0.01 K/uL (0.00-0.30); Immature Granulocytes Pct Auto 0.1 %; Lymphocytes Percent Auto 19.7 % (20-44); Mean Corpuscular HGB Conc 32 gm/dL (32-36); Mean Corpuscular Hemoglobin 30 pg (26-34); Mean Corpuscular Volume 93 fL (80-100); Monocytes Percent Auto 4.9 % (0.0-11.0); Platelet Count* 210 K/uL (140-440); RDW Coefficient of Variation % 13.1 % (11.5-15.5); Red Blood Count 4.22 m/uL (4.00-5.20); White Blood Count* 7.09 K/uL (4.50-11.00)
[2023-10-18 07:13] LABS: Slide Review Reflex No
== END 2023-10-18 07:33 | disposition home or self-care (01) ==
PROVIDERS: Emergency Provider Family Medicine; PCP Nurse Practitioner Family
DX: O20.0 Threatened abortion (principal); Z3A.10 10 weeks gestation of pregnancy
CPT/HCPCS: 36415; 76801; 84702; 85025; 99284

== ENCOUNTER 2023-10-28 03:16 | Emergency (ER) | payer OTHER, SELFPAY ==
[2023-10-28 03:24] VITALS: BP 132/82; PULSE 94; RESP 16; TEMP 36.6; O2SAT 100; BMI 37.3
--- OUTSIDE RECORDS SUMMARY | 2023-10-28 04:49 | XMS_ITS ---
Author Name Unknown Organization [facility] Address [address] [place] [address] Care Team Providers Care Mangle Roll Operator Name Role Phone Unavailable Unavailable Unavailable Surgery Details Not on file Complications Check Surgery Details section. Procedure Estimated Blood Loss Check Surgery Details section. Procedure Findings Check Surgery Details section. Procedure Specimens Taken Check Surgery Details section.
--- OUTSIDE RECORDS SUMMARY | 2023-10-28 04:49 | XMS_ITS | Referral Summary ---
Author Name Unknown Organization [facility] Address [address] [place] [address] Care Team Providers Care Medical Artist Name Role Phone Elsewhere, Pcp Primary Care Provider Unavailabl e Source Comments Patient records contain information from all sites at [facility]. For routine questions regarding patient records, call [phone] during business hours, M-F 8:00 AM - 5:00 PM Central Time. Record requests for emergency care only can be directed to [phone] at any time.[facility] Allergies No known active allergies Medications [...] your living situation today? I have a [facility] place to live 12/11/2022 Sex and Gender Information Value Date Recorded Sex Assigned at Female 12/11/2022 12:18 PM CDT Gender Identity Female 06/25/2020 3:31 PM VIDEO PRODUCTION ASSISTANT Sexual Orientation Straight 12/11/2022 12 :18 PM [...] of Treatment Not on file Care Teams Medical Artist Relationship Specialty Start Date End Date Elsewhere, Pcp PCP - General Internal Medicine 08/24/21
--- OUTSIDE RECORDS SUMMARY | 2023-10-28 04:49 | XMS_ITS | Clinical Summary ---
Author Name Unknown Organization [facility] Address [address] [place] [address] Care Team Providers Care Assembly And Packing Supervisor Name Role Phone Elsewhere, Pcp Primary Care Provider Unavailabl e Source Comments Patient records contain information from all sites at [facility]. For routine questions regarding patient records, call [phone] during business hours, M-F 8:00 AM - 5:00 PM Central Time. Record requests for emergency care only can be directed to [phone] at any time.[facility] Allergies No known active allergies Medications Medication [...] your living situation today? I have a [facility] place to live 12/11/2022 Sex and Gender Information Value Date Recorded Sex Assigned at Female 12/11/2022 12:18 PM CDT Gender Identity Female 06/25/2020 3:31 PM STOCK DIGGER Sexual Orientation Straight 12/11/2022 12 :18 PM [...] age to complete this topic Care Teams Assembly And Packing Supervisor Relationship Specialty Start Date End Date Elsewhere, Pcp PCP - General Internal Medicine 08/24/21
--- NOTE | 2023-10-28 07:03 | ED.GENADULT ---
HPI - General Adult General Date Seen: 10/28/23 Chief complaint: Vaginal Bleeding Stated complaint: 12 weeks prego - Bleeding Source: patient Mode of arrival: ambulatory Limitations: no limitations History of Present Illness HPI narrative: Patient is a 28-year-old here for vaginal bleeding during . Patient was seen during downtime, electronic health record not available. She notes that she is 12 weeks by previous ultrasound. Two weeks ago, she had some vaginal bleeding and had an ultrasound which showed subchorionic hemorrhage. She says she was told to kind of take it easy but she did yesterday lift some heavy bags of chicken feed. About an hour ago she stood up and had a gush of blood, similar to what she had 2 weeks ago. Her is out of town, she says she just kind of panicked about what this might mean and came in right away. On the way here she feels like the bleeding has stopped. She does not have any cramping, she is not anticoagulated. This or 1st . No trauma, no recent intercourse, no other complaints. Related Data Home Medications Medication Instructions Recorded Confirmed cholecalciferol (vitamin D3) 25 25 mcg PO QDAY 10/09/23 10/25/23 mcg (1,000 unit) capsule docosahexaenoic acid 200 mg 200 mg PO DAILY 10/09/23 10/25/23 capsule ( DHA) valacyclovir 500 mg tablet 500 mg PO QDAY 10/25/23 10/25/23 (Valtrex) Allergies Allergy/AdvReac Type Severity Reaction Status Date / Time morphine AdvReac Intermediate Vomiting Verified 10/25/23 12:55 Review of Systems Status of ROS: Reports: 10 or more systems reviewed and unremarkable except as noted in History and below [facility] Medical History History of kidney stones (2011) ?Z87.442 - Personal history of urinary calculi (ICD-10) Family History Mother Breast cancer Maternal Grandmother Breast cancer Grandfather Stroke Diabetes Father High blood pressure Sister Bipolar disorder Social History What is your current living situation?: I presently have a place to live Problems where you live: no known problems In the past 12 months, utilities in danger of being shut off: no In past 12 months, lack of transportation kept you from medical appts, meetings, work, or getting things needed for daily living: no In the past 12 mos, have been you worried that your food would run out before you had money to buy more?: never true In the past 12 mos, the food you bought just didn't last and you didn't have money to buy more?: never true Smoking Status: Never smoker Do you use any of these nicotine containing products: None Second hand tobacco smoke exposure: No How often do you have a drink containing alcohol: never How often do you have six or more drinks on one occasion: Never AUDIT-C Alcohol total score: 0 Non-prescribed substance use: denies use How often does anyone, including family, friends and others, physically hurt you: never How often does anyone, including family, friends and others, insult or talk down to you: never How often does anyone, including family, friends and others, threaten you with harm: never How often does anyone, including family, friends and others, scream or curse at you: never Little interest or pleasure in doing things: not at all Feeling down, depressed, or hopeless: several days service: No Exam Narrative: Exam Narrative: Vital signs reviewed In general, alert, well-appearing woman. Abdomen: Soft and nontender. Pelvic: Scant amount of blood in the vaginal vault, no active bleeding at this time. Skin: Warm dry well perfused. Const: Vital Signs, click to edit/add: Vital Signs - 24 hr 10/28/23 03:24 10/28/23 03:24 Temperature 98 F 98 F Pulse Rate [Pulse Oximeter] 94 94 Respiratory Rate 16 16 Blood Pressure [Le ft Upper Arm] 132/82 Blood Pressure [Ri ght Upper Arm] 132/82 Pulse Oximetry 100 100 Oxygen Delivery Me thod Room Air Room Air Documenting provider has reviewed patient's vital signs: yes Course Course ED Course: We looked with the bedside ultrasound, there was good cardiac activity, ample movement. Patient reports that she is O-positive, did not require RhoGAM with her last episode of vaginal bleeding. Discussed with her that I am not able to tell her whether there is evidence of subchorionic hemorrhage again, but baby looks good, I do not think a formal ultrasound is needed overnight. She feels very reassured the baby looks good. We reviewed that at this point in all she can do is kind of take it easy and see how things go. Recommended no lifting greater than 10 lb, nothing per vagina. Check in with Ob tomorrow. Return any time for heavier bleeding, significant cramping, fevers, or other worsening. Vital Signs Vital signs: Initial Vital Signs Temperature 98 F 10/28/23 03:24 Temperature Source Temporal Artery Scan 10/28/23 03:24 Pulse Rate 94 10/28/23 03:24 Respiratory Rate 16 10/28/23 03:24 Respiratory Effort Normal, Spontaneous, Non-Labored 10/28/23 03:24 Respiratory Depth Normal 10/28/23 03:24 Respiratory Pattern Normal 10/28/23 03:24 Blood Pressure 132/82 10/28/23 03:24 Blood Pressure Mean 98 10/28/23 03:24 Blood Pressure Position Supine 10/28/23 03:24 Pulse Oximetry 100 10/28/23 03:24 Oxygen Delivery Method Room Air 10/28/23 03:24 Vital Signs Temperature 98 F 10/28/23 03:24 Pulse Rate 94 10/28/23 03:24 Respiratory Rate 16 10/28/23 03:24 Blood Pressure 132/82 10/28/23 03:24 Pulse Oximetry 100 10/28/23 03:24 Oxygen Delivery Method Room Air 10/28/23 03:24 Temperature 98 F 10/28/23 03:24 Pulse Rate 94 10/28/23 03:24 Respiratory Rate 16 10/28/23 03:24 Blood Pressure 132/82 10/28/23 03:24 Pulse Oximetry 100 10/28/23 03:24 Oxygen Delivery Method Room Air 10/28/23 03:24 Discharge Plan Discharge Clinical Impression: Threatened miscarriage in early Patient Disposition: Home, Self-Care Condition: Improved Additional Instructions: Check-in with OB tomorrow. Return any time for significant bleeding, greater than 1 pad an hour for 2 hours, severe abdominal pain, fevers or other worsening. Prescriptions: No Action DHA 200 mg capsule 200 mg PO DAILY cholecalciferol (vitamin D3) 25 mcg (1,000 unit) capsule 25 mcg PO QDAY valacyclovir [Valtrex] 500 mg tablet 500 mg PO QDAY Follow Up/Referrals: Loyda Ross, TRANSPORTATION COORDINATOR [Primary Care Provider] - Stand Alone Forms: [employer] Info Instructions
== END 2023-10-28 03:48 | disposition home or self-care (01) ==
PROVIDERS: Emergency Provider Emergency Medicine; PCP Nurse Practitioner Family
DX: O20.0 Threatened abortion (principal); Z3A.12 12 weeks gestation of pregnancy
CPT/HCPCS: 99283; 99284

== ENCOUNTER 2023-12-12 13:46 | Outpatient (CLI) | payer OTHER, SELFPAY ==
--- OUTSIDE RECORDS SUMMARY | 2023-12-14 09:12 | XMS_ITS | Referral Summary ---
Author Organization [facility] Address [address] [place] [address] Care Team Providers Care Touch Up Painter Name Role Phone Elsewhere, Pcp Primary Care Provider Unavailabl e Source Comments Patient records contain information from all sites at [facility]. For routine questions regarding patient records, call [phone] during business hours, M-F 8:00 AM - 5:00 PM Central Time. Record requests for emergency care only can be directed to [phone] at any time[address] Allergies No known active allergies Medications [...] your living situation today? I have a [facility] place to live 12/11/2022 Sex and Gender Information Value Date Recorded Sex Assigned at Female 12/11/2022 12:18 PM CDT Gender Identity Female 06/25/2020 3:31 PM POTATO CHIP FRIER Sexual Orientation Straight 12/11/2022 12 :18 PM [...] of Treatment Not on file Care Teams Touch Up Painter Relationship Specialty Start Date End Date Elsewhere, Pcp PCP - General Internal Medicine 08/24/21
--- OUTSIDE RECORDS SUMMARY | 2023-12-14 09:12 | XMS_ITS | Clinical Summary ---
Author Organization [facility] Address [address] [place] [address] Care Team Providers Care Curing Room Supervisor Name Role Phone Elsewhere, Pcp Primary Care Provider Unavailabl e Source Comments Patient records contain information from all sites at [facility]. For routine questions regarding patient records, call [phone] during business hours, M-F 8:00 AM - 5:00 PM Central Time. Record requests for emergency care only can be directed to [phone] at any time.[facility] Allergies No known active allergies Medications [...] CDT Gender Identity Female 06/25/2020 3:31 PM RESPIRATORY CARE FACULTY Sexual Orientation Straight 12/11/2022 12 :18 PM [...] 3-dose series) 07/27/2014 05/04/2014, 01/21/2013 COVID-19 Vaccine ( - 2022- season) 2023 07/26/2020, 07/01/2020 Depression Screening (Annual [...] age to complete this topic Care Teams Curing Room Supervisor Relationship Specialty Start Date End Date Elsewhere, Pcp PCP - General Internal Medicine 08/24/21
--- OUTSIDE RECORDS SUMMARY | 2023-12-14 09:12 | XMS_ITS ---
Author Organization [facility] Address [address] [place] [address] Care Team Providers Care Petroleum Production Engineer Name Role Phone Unavailable Unavailable Unavailable Surgery Details Not on file Complications Check Surgery Details section. Procedure Estimated Blood Loss Check Surgery Details section. Procedure Findings Check Surgery Details section. Procedure Specimens Taken Check Surgery Details section.
== END 2023-12-12 13:47 | disposition home or self-care (01) ==
PROVIDERS: PCP Nurse Practitioner Family; Referring Provider Nurse Practitioner Family; Visit Provider Advanced Practice Midwife
DX: O26.892 Other specified pregnancy related conditions, second trimester (principal); N89.8 Other specified noninflammatory disorders of vagina; Z3A.18 18 weeks gestation of pregnancy
CPT/HCPCS: 87086

== ENCOUNTER 2024-01-01 12:50 | Outpatient (CLI) | payer OTHER, SELFPAY ==
--- OUTSIDE RECORDS SUMMARY | 2024-01-01 12:54 | XMS_ITS | Referral Summary ---
Author Organization [facility] Address [address] [place] [address] Care Team Providers Care Drum Sander Offbearer Name Role Phone Elsewhere, Pcp Primary Care Provider Unavailabl e Source Comments Patient records contain information from all sites at [facility]. For routine questions regarding patient records, call [phone] during business hours, M-F 8:00 AM - 5:00 PM Central Time. Record requests for emergency care only can be directed to [phone] at any time.[facility] Allergies No known active allergies Medications Medication [...] your living situation today? I have a [facility] place to live 12/11/2022 Sex and Gender Information Value Date Recorded Sex Assigned at Female 12/11/2022 12:18 PM CDT Gender Identity Female 06/25/2020 3:31 PM ANALYTICAL ENGINEER Sexual Orientation Straight 12/11/2022 12 :18 [...] of Treatment Not on file Care Teams Drum Sander Offbearer Relationship Specialty Start Date End Date Elsewhere, Pcp PCP - General Internal Medicine 08/24/21
--- OUTSIDE RECORDS SUMMARY | 2024-01-01 12:54 | XMS_ITS ---
Author Organization [facility] Address [address] [place] [address] Care Team Providers Care Minesweeping Officer Name Role Phone Unavailable Unavailable Unavailable Surgery Details Not on file Complications Check Surgery Details section. Procedure Estimated Blood Loss Check Surgery Details section. Procedure Findings Check Surgery Details section. Procedure Specimens Taken Check Surgery Details section.
--- OUTSIDE RECORDS SUMMARY | 2024-01-01 12:54 | XMS_ITS | Clinical Summary ---
Author Organization [facility] Address [address] [place] [address] Care Team Providers Care Freight Broker Agent Name Role Phone Elsewhere, Pcp Primary Care Provider Unavailabl e Source Comments Patient records contain information from all sites at [facility]. For routine questions regarding patient records, call [phone] during business hours, M-F 8:00 AM - 5:00 PM Central Time. Record requests for emergency care only can be directed to [phone] at any time.[facility] Allergies No known active allergies Medications Medication [...] living situation today? I have a [facility] place to live 12/11/2022 Sex and Gender Information Value Date Recorded Sex Assigned at Female 12/11/2022 12:18 PM CDT Gender Identity Female 06/25/2020 3:31 PM CUSTOMER FIELD REPRESENTATIVE Sexual Orientation Straight 12/11/2022 12 :18 PM [...] 07/27/2014 05/04/2014, 01/21/2013 COVID-19 Vaccine (3 - 2022- season) 2023 07/26/2020, 07/01/2020 Depression Screening (Annual PHQ-2) 06/18/2023 Influenza Vaccine (#1) 2024 , 03/22/2022, 04/05/2021, Additional history exists DTaP,Tdap,and Td Vaccines (8 - Td or Tdap) 11/07/2032 11/07/2022, 01/21/2013, 08/15/2004, Additional history exists Hepatitis B Vaccines Completed 05/17/2000, 12/06/1999, 11/03/1999 Varicella Vaccines Completed 01/21/2013, 11/03/1999 Pneumococcal vaccine (0-64 years) Aged Out No longer eligible based on patient's age to complete this topic Care Teams Freight Broker Agent Relationship Specialty Start Date End Date Elsewhere, Pcp PCP - General Internal Medicine 08/24/21
--- NOTE | 2024-01-01 13:00 | CRLHL7_ITS ---
For Patients: As a result of the Century Cures Act, medical imaging exams and procedure reports are released immediately into your electronic medical record. You may view this report before your referring provider. If you have questions, please contact your health care provider. INDICATION: Evaluate anatomy. COMPARISON: 10/18/2023 TECHNIQUE: Real time jara scale imaging of the fetus was performed as well as color Doppler analysis of the umbilical vessels. FINDINGS: Sonographic imaging demonstrates a single living intrauterine gestation. Fetus demonstrates a regular cardiac rate of 144 beats per minute. Fetus has a variable position. The placenta lies on the right without evidence of placenta previa. Edge of the placenta 8.5 cm from the internal cervical os. Amniotic fluid volume appears normal. Single deepest vertical pocket: 6.6 cm. The cervix is closed and measures 4.5 cm in length. The composite ultrasound gestational age is calculated at 21 weeks 6 days with an estimated sonographic due date of 05/07/2024. The estimated weight is 474 grams which lies at the 96th %. The following biometric measurements were obtained: Biparietal diameter: 5.2 cm/21 weeks 5 days 81st% Head circumference: 19.2 cm/21 weeks 3 days 66th% Abdominal circumference: 18.6 cm/23 weeks 3 day greater than 97th% Femur length: 3.4 cm/20 weeks 4 days 31st% The HC/AC ratio measures: 1.03 range (1.06-1.23) On anatomic survey, there is a normal appearance of the cerebral ventricles, cisterna magna and cerebellum. Incomplete visualization of the CSP. The nose, lips, and facial profile appear normal. The cervical, thoracic and lumbar spine are well visualized and appear normal. There is a normal four-chamber heart view and left ventricular outflow tract. Incomplete visualization of the right outflow tract. The diaphragm and stomach appear normal. The kidneys and bladder also appear normal. There is a normal three-vessel cord and cord insertion site. The four extremities appear normal. IMPRESSION: Sonographic gestational age 21 weeks 6 days and a sonographic due date of 05/07/2024. Sonographic age 1 week ahead of the clinical age. Estimated weight 96th percentile. Abdominal circumference greater than 97th percentile. Incomplete visualization of the RVOT and CSP. Short-term follow recommended. Dictated by Kvng Johnson MD @ 01/02/2024 11:41:00 AM (Electronically Signed)
== END 2024-01-01 12:51 | disposition home or self-care (01) ==
LOC: US 12:50
PROVIDERS: PCP Nurse Practitioner Family; Visit Provider Obstetrics & Gynecology
DX: Z34.92 Encounter for supervision of normal pregnancy, unspecified, second trimester (principal); Z3A.21 21 weeks gestation of pregnancy
CPT/HCPCS: 76805

== ENCOUNTER 2024-02-01 12:17 | Outpatient (CLI) | payer OTHER, SELFPAY ==
--- NOTE | 2024-02-01 12:15 | CRLHL7_ITS ---
For Patients: As a result of the Century Cures Act, medical imaging exams and procedure reports are released immediately into your electronic medical record. You may view this report before your referring provider. If you have questions, please contact your health care provider. INDICATION: F/U HEART AND CSP COMPARISON: 01/01/2024 TECHNIQUE: Real-time jara-scale imaging of the pelvis was performed. FINDINGS: No abnormalities of the cavum septum pellucidum. Normal heart views including four-chamber heart, LVOT, RVOT, 3VV and 3VTV. heart rate 144 beats per minute. Amniotic fluid volume normal with single deepest pocket 5.0 cm. Vertex position. IMPRESSION: Normal heart views. No abnormality of the cavum septum pellucidum. Dictated by Kvng Johnson MD @ 02/01/2024 3:14:32 PM (Electronically Signed)
== END 2024-02-01 12:18 | disposition home or self-care (01) ==
LOC: US 12:17
PROVIDERS: PCP Nurse Practitioner Family; Visit Provider Obstetrics & Gynecology
DX: O36.8930 Maternal care for other specified fetal problems, third trimester, not applicable or unspecified (principal)
CPT/HCPCS: 76816

== ENCOUNTER 2024-02-11 09:48 | Outpatient (CLI) | payer OTHER, SELFPAY ==
--- OUTSIDE RECORDS SUMMARY | 2024-02-11 09:51 | XMS_ITS | Referral Summary ---
Author Organization [facility] Address [address] [place] [address] Care Team Providers Care Software Security Consultant Name Role Phone Elsewhere, Pcp Primary Care Provider Unavailabl e Source Comments Patient records contain information from all sites at [facility]. For routine questions regarding patient records, call [phone] during business hours, M-F 8:00 AM - 5:00 PM Central Time. Record requests for emergency care only can be directed to [phone] at any time.[facility] Allergies No known active allergies Medications Medication Sig Dispensed Refills Start Date End Date Status valACYclovir (VALTREX) 1000 mg tablet Take 2,000 mg by mouth 2 (two) times a day. 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 I have a [facility] place to live 12/11/2022 Sex and Gender Information Value Date Recorded Sex Assigned at Female 12/11/2022 12:18 PM CDT Gender Identity Female 06/25/2020 3:31 PM PCB DESIGNER Sexual Orientation Straight 12/11/2022 12 :18 PM [...] of Treatment Not on file Care Teams Software Security Consultant Relationship Specialty Start Date End Date Elsewhere, Pcp PCP - General Internal Medicine 08/24/21
--- OUTSIDE RECORDS SUMMARY | 2024-02-11 09:51 | XMS_ITS ---
Author Organization [facility] Address [address] [place] [address] Care Team Providers Care Production Team Advisor Name Role Phone Unavailable Unavailable Unavailable Surgery Details Not on file Complications Check Surgery Details section. Procedure Estimated Blood Loss Check Surgery Details section. Procedure Findings Check Surgery Details section. Procedure Specimens Taken Check Surgery Details section.
--- OUTSIDE RECORDS SUMMARY | 2024-02-11 09:51 | XMS_ITS | Clinical Summary ---
Author Organization [facility] Address [address] [place] [address] Care Team Providers Care Provider Engagement Executive Name Role Phone Elsewhere, Pcp Primary Care Provider Unavailabl e Source Comments Patient records contain information from all sites at [facility]. For routine questions regarding patient records, call [phone] during business hours, M-F 8:00 AM - 5:00 PM Central Time. Record requests for emergency care only can be directed to [phone] at any time.[facility] Allergies No known active allergies Medications Medication [...] your living situation today? I have a [facility] place to live 12/11/2022 Sex and Gender Information Value Date Recorded Sex Assigned at Female 12/11/2022 12:18 PM CDT Gender Identity Female 06/25/2020 3:31 PM THERMODYNAMICS TEACHER Sexual Orientation Straight 12/11/2022 12 :18 PM [...] 3-dose series) 07/27/2014 05/04/2014, 01/21/2013 COVID-19 Vaccine (2022- season) 2023 07/26/2020, 07/01/2020 Depression Screening (Annual [...] age to complete this topic Care Teams Provider Engagement Executive Relationship Specialty Start Date End Date Elsewhere, Pcp PCP - General Internal Medicine 08/24/21
[2024-02-11 14:44] LABS: Appearance Urine Clear (Clear); Bilirubin Urine Negative (Negative); Blood Urine Negative (Negative); Color Urine Yellow (Yellow); Glucose Urine Negative (Negative); Ketones Urine Negative (Negative); Leukocyte Esterase Urine Negative (Negative); Nitrite Urine Negative (Negative); Protein Urine Negative (Negative); Urobilinogen Urine 0.2 (0.2-1.0)
[2024-02-11 14:47] LABS: Bacteria Urine Few; RBC Urine 0-2 (0-2); Squamous Epithelial Cell Urine Few (None-Few); WBC Urine 0-2 (0-5)
== END 2024-02-11 09:49 | disposition home or self-care (01) ==
PROVIDERS: PCP Nurse Practitioner Family; Visit Provider Obstetrics & Gynecology
DX: N89.8 Other specified noninflammatory disorders of vagina (principal)
CPT/HCPCS: 81001; 87086

== ENCOUNTER 2024-02-14 13:08 | Outpatient (CLI) | payer OTHER, SELFPAY ==
--- OUTSIDE RECORDS SUMMARY | 2024-02-14 13:13 | XMS_ITS ---
Author Organization [facility] Address [address] [place] [address] Care Team Providers Care Employee Relations Representative Name Role Phone Unavailable Unavailable Unavailable Surgery Details Not on file Complications Check Surgery Details section. Procedure Estimated Blood Loss Check Surgery Details section. Procedure Findings Check Surgery Details section. Procedure Specimens Taken Check Surgery Details section.
--- OUTSIDE RECORDS SUMMARY | 2024-02-14 13:13 | XMS_ITS | Referral Summary ---
Author Organization [facility] Address [address] [place] [address] Care Team Providers Care Chemical Engineer Name Role Phone Elsewhere, Pcp Primary Care Provider Unavailabl e Source Comments Patient records contain information from all sites at [facility]. For routine questions regarding patient records, call [phone] during business hours, M-F 8:00 AM - 5:00 PM Central Time. Record requests for emergency care only can be directed to [phone] at any time.[facility] Allergies No known active allergies Medications [...] situation today? I have a [facility] place to live 12/11/2022 Sex and Gender Information Value Date Recorded Sex Assigned at Female 12/11/2022 12:18 PM CDT Gender Identity Female 06/25/2020 3:31 PM WOOD HEEL ATTACHER Sexual Orientation Straight 12/11/2022 12 :18 PM [...] of Treatment Not on file Care Teams Chemical Engineer Relationship Specialty Start Date End Date Elsewhere, Pcp PCP - General Internal Medicine 08/24/21
--- OUTSIDE RECORDS SUMMARY | 2024-02-14 13:13 | XMS_ITS | Clinical Summary ---
Author Organization [facility] Address [address] [place] [address] Care Team Providers Care Convex Grinder Operator Name Role Phone Elsewhere, Pcp Primary Care Provider Unavailabl e Source Comments Patient records contain information from all sites at [facility]. For routine questions regarding patient records, call [phone] during business hours, M-F 8:00 AM - 5:00 PM Central Time. Record requests for emergency care only can be directed to [phone] at any time.[facility] Allergies No [...] your living situation today? I have a [facility] place to live 12/11/2022 Sex and Gender Information Value Date Recorded Sex Assigned at Female 12/11/2022 12:18 PM CDT Gender Identity Female 06/25/2020 3:31 PM SHOE TREER Sexual Orientation Straight 12/11/2022 12 :18 PM [...] age to complete this topic Care Teams Convex Grinder Operator Relationship Specialty Start Date End Date Elsewhere, Pcp PCP - General Internal Medicine 08/24/21
== END 2024-02-14 13:09 | disposition home or self-care (01) ==
LOC: NFLDREF 13:12
PROVIDERS: PCP Nurse Practitioner Family; Visit Provider Obstetrics & Gynecology
DX: N30.10 Interstitial cystitis (chronic) without hematuria (principal)
CPT/HCPCS: 87086

== ENCOUNTER 2024-02-21 10:44 | Outpatient (CLI) | payer OTHER, SELFPAY ==
--- OUTSIDE RECORDS SUMMARY | 2024-02-26 08:20 | XMS_ITS ---
Author Organization [facility] Address [address] [place] [address] Care Team Providers Care Rim Buster Name Role Phone Unavailable Unavailable Unavailable Surgery Details Not on file Complications Check Surgery Details section. Procedure Estimated Blood Loss Check Surgery Details section. Procedure Findings Check Surgery Details section. Procedure Specimens Taken Check Surgery Details section.
--- OUTSIDE RECORDS SUMMARY | 2024-02-26 08:20 | XMS_ITS | Referral Summary ---
Author Organization [facility] Address [address] [place] [address] Care Team Providers Care Animal Attendants And Trainers Name Role Phone Elsewhere, Pcp Primary Care Provider Unavailabl e Source Comments Patient records contain information from all sites at [facility]. For routine questions regarding patient records, call [phone] during business hours, M-F 8:00 AM - 5:00 PM Central Time. Record requests for emergency care only can be directed to [phone] at any time.[facility] Allergies No known active allergies Medications [...] your living situation today? I have a [facility] place to live 12/11/2022 Sex and Gender Information Value Date Recorded Sex Assigned at Female 12/11/2022 12:18 PM CDT Gender Identity Female 06/25/2020 3:31 PM BLOCK SAW OPERATOR Sexual Orientation Straight 12/11/2022 12 :18 [...] of Treatment Not on file Care Teams Animal Attendants And Trainers Relationship Specialty Start Date End Date Elsewhere, Pcp PCP - General Internal Medicine 08/24/21
--- OUTSIDE RECORDS SUMMARY | 2024-02-26 08:20 | XMS_ITS | Clinical Summary ---
Author Organization [facility] Address [address] [place] [address] Care Team Providers Care Principal Systems Architect Name Role Phone Elsewhere, Pcp Primary Care Provider Unavailabl e Source Comments Patient records contain information from all sites at [facility]. For routine questions regarding patient records, call [phone] during business hours, M-F 8:00 AM - 5:00 PM Central Time. Record requests for emergency care only can be directed to [phone] at any time.[facility] Allergies No known active allergies Medications [...] your living situation today? I have a [facility] place to live 12/11/2022 Sex and Gender Information Value Date Recorded Sex Assigned at Female 12/11/2022 12:18 PM CDT Gender Identity Female 06/25/2020 3:31 PM MANAGER OF INVESTIGATIONS Sexual Orientation Straight 12/11/2022 12 :18 PM [...] (3 - 3-dose series) 07/27/2014 05/04/2014, 01/21/2013 Depression Screening (Annual PHQ-2) 06/18/2023 COVID-19 Vaccine ( season) 2024 07/26/2020, 07/01/2020 Influenza Vaccine (#1) 2024 , 03/22/2022, 04/05/2021, Additional history exists DTaP,Tdap,and Td Vaccines (8 - Td or Tdap) 11/07/2032 11/07/2022, 01/21/2013, 08/15/2004, Additional history exists Hepatitis B Vaccines Completed 05/17/2000, 12/06/1999, 11/03/1999 Varicella Vaccines Completed 01/21/2013, 11/03/1999 Pneumococcal vaccine (0-64 years) Aged Out No longer eligible based on patient's age to complete this topic Care Teams Principal Systems Architect Relationship Specialty Start Date End Date Elsewhere, Pcp PCP - General Internal Medicine 08/24/21
== END 2024-02-21 10:45 | disposition home or self-care (01) ==
LOC: NFLDREF 02-26 08:19
PROVIDERS: PCP Nurse Practitioner Family; Referring Provider Nurse Practitioner Family; Visit Provider Obstetrics & Gynecology
DX: Z34.03 Encounter for supervision of normal first pregnancy, third trimester (principal)
CPT/HCPCS: 86592

== ENCOUNTER 2024-03-19 13:00 | Outpatient (CLI) | payer OTHER, SELFPAY ==
--- NOTE | 2024-03-19 13:00 | CRLHL7_ITS ---
For Patients: As a result of the Century Cures Act, medical imaging exams and procedure reports are released immediately into your electronic medical record. You may view this report before your referring provider. If you have questions, please contact your health care provider. OB ULTRASOUND VIRY by LMP: 05/14/2024. GA: 32w, 0d. Single. COMPARISON: 01/31/2024. INDICATION: Growth, size-dates discrepancy. CERVIX: Not visualized. POSITIONING: Vertex. AMNIOTIC FLUID: 4.0 cm SDP (N: Increase 2x1cm). PLACENTA: Technique: Transabdominal. PLACENTA POSITION: Posterior, right wall. DOPPLER: heart rate: 142 bpm. Biometry: BPD: 8.67 cm. 35w, 0d, 97 percent. HC: 30.6 cm. 34w, 1d, 70 percent. AC: 29.0 cm. 33w, 0d, 77 percent. FL: 6.2 cm. 32w, 2d, 44 percent. FL/AC ratio: 21.4 percent. HC/AC ratio: 1.05. EFW: 2115 g. Weight: 4 lbs, 11 oz. age by this US: 33w, 4d. VIRY by this US: 05/03/2024. Percentile by VIRY: 74 percent. IMPRESSION: Single, live intrauterine measuring 33 weeks 4 days. Guzman Vasquez M.D. Body/Diagnostic Radiologist [email or web address] MARCK/sp SP/Dictated by: Guzman Vasquez MD @ 03/21/2024 12:31:00 PM (Electronically Signed)
--- OUTSIDE RECORDS SUMMARY | 2024-03-19 13:11 | XMS_ITS | Referral Summary ---
Author Organization [facility] Address [address] [place] [address] Care Team Providers Care Commissioned Defence Force Officer Name Role Phone Elsewhere, Pcp Primary Care Provider Unavailabl e Source Comments Patient records contain information from all sites at [facility]. For routine questions regarding patient records, call [phone] during business hours, M-F 8:00 AM - 5:00 PM Central Time. Record requests for emergency care only can be directed to [phone] at any time.[facility] Allergies No known active allergies Medications Medication [...] your living situation today? I have a [facility] place to live 12/11/2022 Sex and Gender Information Value Date Recorded Sex Assigned at Female 12/11/2022 12:18 PM CDT Gender Identity Female 06/25/2020 3:31 PM STEAM BOX OPERATOR Sexual Orientation Straight 12/11/2022 12 :18 [...] of Treatment Not on file Care Teams Commissioned Defence Force Officer Relationship Specialty Start Date End Date Elsewhere, Pcp PCP - General Internal Medicine 08/24/21
--- OUTSIDE RECORDS SUMMARY | 2024-03-19 13:11 | XMS_ITS | Clinical Summary ---
Author Organization [facility] Address [address] [place] [address] Care Team Providers Care Furniture Sales Consultant Name Role Phone Elsewhere, Pcp Primary Care Provider Unavailabl e Source Comments Patient records contain information from all sites at [facility]. For routine questions regarding patient records, call [phone] during business hours, M-F 8:00 AM - 5:00 PM Central Time. Record requests for emergency care only can be directed to [phone] at any time.[facility] [place] [facility] Allergies No known active allergies Medications Medication [...] CDT Gender Identity Female 06/25/2020 3:31 PM PERFORMANCE TEST ARCHITECT Sexual Orientation Straight 12/11/2022 12 :18 PM [...] age to complete this topic Care Teams Furniture Sales Consultant Relationship Specialty Start Date End Date Elsewhere, Pcp PCP - General Internal Medicine 08/24/21
--- OUTSIDE RECORDS SUMMARY | 2024-03-19 13:11 | XMS_ITS ---
Author Organization [facility] Address [address] [place] [address] Care Team Providers Care National Insurance Officer Name Role Phone Unavailable Unavailable Unavailable Surgery Details Not on file Complications Check Surgery Details section. Procedure Estimated Blood Loss Check Surgery Details section. Procedure Findings Check Surgery Details section. Procedure Specimens Taken Check Surgery Details section.
== END 2024-03-19 13:01 | disposition home or self-care (01) ==
LOC: US 13:00
PROVIDERS: PCP Nurse Practitioner Family; Visit Provider Obstetrics & Gynecology
DX: O36.63X0 Maternal care for excessive fetal growth, third trimester, not applicable or unspecified (principal); Z3A.32 32 weeks gestation of pregnancy
CPT/HCPCS: 76816

== ENCOUNTER 2024-04-04 15:46 | Outpatient (CLI) | payer OTHER, SELFPAY ==
[2024-04-04] VITALS (11 sets, daily range): BP systolic 127–143; BP diastolic 70–85; PULSE 79–100; RESP 16; TEMP 36.6; O2SAT 98–100
--- OUTSIDE RECORDS SUMMARY | 2024-04-04 15:47 | XMS_ITS ---
Author Organization [facility] Address [address] [place] [address] Care Team Providers Care Proj Engineer Name Role Phone Unavailable Unavailable Unavailable Surgery Details Not on file Complications Check Surgery Details section. Procedure Estimated Blood Loss Check Surgery Details section. Procedure Findings Check Surgery Details section. Procedure Specimens Taken Check Surgery Details section.
--- OUTSIDE RECORDS SUMMARY | 2024-04-04 15:47 | XMS_ITS | Clinical Summary ---
Author Organization [facility] Address [address] [place] [address] Care Team Providers Care Dining Car Hop Name Role Phone Elsewhere, Pcp Primary Care Provider Unavailabl e Source Comments Patient records contain information from all sites at [facility]. For routine questions regarding patient records, call [phone] during business hours, M-F 8:00 AM - 5:00 PM Central Time. Record requests for emergency care only can be directed to [phone] at any time.[facility] Allergies No known active allergies Medications valACYclovir (VALTREX) 1000 mg tablet Take 2,000 [...] your living situation today? I have a [facility] place to live 12/11/2022 Comments No Sex and Gender Information Value Date Recorded Sex Assigned at Female 12/11/2022 12:18 PM CDT Legal Sex Female 5:41 PM CARPENTER REPAIRER Gender Identity Female 06/25/2020 3:31 PM CARPENTER REPAIRER Sexual Orientation Straight 12/11/2022 12 :18 PM [...] 2024 07/26/2020, 07/01/2020 Influenza Vaccine (#1) 2024 3, 03/22/2022, 04/05/2021, Additional history exists DTaP,Tdap,and Td Vaccines (8 - Td or Tdap) 11/07/2032 11/07/2022, 01/21/2013, 08/15/2004, Additional history exists Hepatitis B Vaccines Completed 05/17/2000, 12/06/1999, 11/03/1999 Varicella Vaccines Completed 01/21/2013, 11/03/1999 Pneumococcal vaccine (0-64 years) Aged Out No longer eligible based on patient's age to complete this topic Insurance [employer] EMPL[employer]EE Care Teams Dining Car Hop Relationship Specialty Start Date End Date Elsewhere, Pcp PCP - General Internal Medicine 08/24/21
--- OUTSIDE RECORDS SUMMARY | 2024-04-04 15:47 | XMS_ITS | Referral Summary ---
Author Organization [facility] Address [address] [place] [address] Care Team Providers Care Rivet Hole Machine Operator Name Role Phone Elsewhere, Pcp Primary Care Provider Unavailabl e Source Comments Patient records contain information from all sites at [facility]. For routine questions regarding patient records, call [phone] during business hours, M-F 8:00 AM - 5:00 PM Central Time. Record requests for emergency care only can be directed to [phone] at any time.[facility] Allergies No known active allergies Medications valACYclovir [...] your living situation today? I have a [facility] place to live 12/11/2022 Comments No Sex and Gender Information Value Date Recorded Sex Assigned at Female 12/11/2022 12:18 PM CDT Legal Sex Female 5:41 PM VOICE NETWORK ADMINISTRATOR Gender Identity Female 06/25/2020 3:31 PM VOICE NETWORK ADMINISTRATOR Sexual Orientation Straight 12/11/2022 12 :18 PM [...] CDT Plan of Treatment Not on file Insurance [employer] [place] EMPLOYEE Care Teams Rivet Hole Machine Operator Relationship Specialty Start Date End Date Elsewhere, Pcp PCP - General Internal Medicine 08/24/21
[2024-04-04 17:06] LABS: Clue Cells No Clue Cells Seen (None Seen); Trichomonas No Trichomonas Seen (None Seen); Yeast No Yeast Seen (None Seen)
[2024-04-04 17:08] LABS: Amnisure Rom* Negative
--- NOTE | 2024-04-04 17:52 | PC.OBNST ---
NST Note NST Note Start: 04/04/24 16:03 Freq: ONCE Status: Active Protocol: Document 04/04/24 17:50 MMB (Rec: 04/04/24 17:52 MMB [id number]) NST Note 1 Para (# of births) 0 EDC 05/14/24 Gestational Age In Weeks & Days 34 Weeks & 2 Days Patient Presented with Complaint(s) of Leaking fluid Reactive Yes Appropriate for Gestational Age Yes RN Dominic Isaac RN Date 04/04/24 Reactive Yes Appropriate for Gestational Age Yes ROMA Magallon RN Date 04/04/24 OB NST charge Yes Complete NST Note via Write Note Yes The provider's electronic signature indicates the NST is reactive/appropriate for gestational age. *Note to provider: If an addendum is required, open the patient's chart and click on the note under the Nurse/Allied Health tab.
== END 2024-04-04 17:45 | disposition home or self-care (01) ==
LOC: OB OUT 15:46 → OB 15:46
PROVIDERS: PCP Nurse Practitioner Family; Visit Provider Obstetrics & Gynecology
DX: O47.03 False labor before 37 completed weeks of gestation, third trimester (principal); Z3A.34 34 weeks gestation of pregnancy
CPT/HCPCS: 59025; 84112; 87210; G0463

== ENCOUNTER 2024-04-16 11:35 | Outpatient (CLI) | payer OTHER, SELFPAY ==
--- NOTE | 2024-04-16 11:30 | CRLHL7_ITS ---
For Patients: As a result of the Cures Act, medical imaging exams and procedure reports are released immediately into your electronic medical record. You may view this report before your referring provider. If you have questions, please contact your health care provider. Indication: Excessive weight gain in ESTIMATED DATE OF DELIVERY (VIRY): 05/14/2024. Technique: Real-time sonographic images of the pelvis were obtained transabdominally using grayscale, color, and Doppler imaging. Comparison: None. Findings: Cervix is not well visualized. Placenta: Posterior right. No previa. : Number: Single. Position: Cephalic. Cardiac activity: 155 BPM. Amniotic fluid: Single deepest pocket measuring 3.1 centimeter. GROWTH PARAMETER SIZE (cm) ESTIMATED AGE Biparietal diameter: 9.3 38 weeks 0 days Head circumference: 32.5 36 weeks 6 days Abdominal circumference: 31.7 35 weeks 5 days Femur length: 7.0 35 weeks 6 days Average Ultrasound Age (AUA) based on this exam: 36 weeks 4 days. VIRY based on the AUA from this exam: 05/10/2024. Estimated weight (EFW): 2843 gm +/-426 gm. This corresponds to the 53 percentile based on the established VIRY. HC/AC= 1.0 FL/AC= 22.0% Impression: 1. Single live intrauterine measuring 36 weeks 4 days by ultrasound. 2. Amniotic fluid with single deepest pocket measuring 3.1 centimeter. Dictated by Ismael Burch MD @ 04/17/2024 10:04:45 AM (Electronically Signed)
--- OUTSIDE RECORDS SUMMARY | 2024-04-16 11:37 | XMS_ITS | Referral Summary ---
Author Organization [facility] Address [address] [place] [address] Care Team Providers Care Medical Chief Technician Name Role Phone Elsewhere, Pcp Primary Care Provider Unavailabl e Source Comments Patient records contain information from all sites at [facility]. For routine questions regarding patient records, call [phone] during business hours, M-F 8:00 AM - 5:00 PM Central Time. Record requests for emergency care only can be directed to [phone] at any time.[facility] Allergies No known active allergies Medications [...] your living situation today? 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
--- OUTSIDE RECORDS SUMMARY | 2024-04-16 11:37 | XMS_ITS ---
Author Organization [facility] Address [address] [place] [address] Care Team Providers Care It Auditor Name Role Phone Unavailable Unavailable Unavailable Surgery Details Not on file Complications Check Surgery Details section. Procedure Estimated Blood Loss Check Surgery Details section. Procedure Findings Check Surgery Details section. Procedure Specimens Taken Check Surgery Details section.
--- OUTSIDE RECORDS SUMMARY | 2024-04-16 11:37 | XMS_ITS | Clinical Summary ---
Author Organization [facility] Address [address] [place] [address] Care Team Providers Care Machine Pan Greaser Name Role Phone Elsewhere, Pcp Primary Care Provider Unavailabl e Source Comments Patient records contain information from all sites at [facility]. For routine questions regarding patient records, call [phone] during business hours, M-F 8:00 AM - 5:00 PM Central Time. Record requests for emergency care only can be directed to [phone] at any time.[facility] [place] [facility] Allergies No known active allergies Medications valACYclovir [...] your living situation today? I have a [facility] place to live 12/11/2022 Comments No Sex and Gender Information Value Date Recorded Sex Assigned at Female 12/11/2022 12:18 PM CDT Legal Sex Female 5:41 PM EXAM PROCTOR Gender Identity Female 06/25/2020 3:31 PM EXAM PROCTOR Sexual Orientation Straight 12/11/2022 12 :18 PM [...] Health Maintenance Due Date Last Done Comments Cervical/Vaginal Cancer Screening 1993 HIV Screening 1993 Hepatitis [...] patient's age to complete this topic Insurance [employer] EMPL[employer]EE Care Teams Machine Pan Greaser Relationship Specialty Start Date End Date Elsewhere, Pcp PCP - General Internal Medicine 08/24/21
== END 2024-04-16 11:36 | disposition home or self-care (01) ==
LOC: US 11:35
PROVIDERS: PCP Nurse Practitioner Family; Visit Provider Obstetrics & Gynecology
DX: O26.03 Excessive weight gain in pregnancy, third trimester (principal); Z68.37 Body mass index [BMI] 37.0-37.9, adult; Z3A.36 36 weeks gestation of pregnancy
CPT/HCPCS: 76816; 87081; 87653

== ENCOUNTER 2024-04-16 13:16 | Outpatient (CLI) | payer OTHER, SELFPAY ==
--- OUTSIDE RECORDS SUMMARY | 2024-04-16 13:18 | XMS_ITS | Clinical Summary ---
Author Organization [facility] Address [address] [place] [address] Care Team Providers Care Atmospheric Scientist Name Role Phone Elsewhere, Pcp Primary Care Provider Unavailabl e Source Comments Patient records contain information from all sites at [facility]. For routine questions regarding patient records, call [phone] during business hours, M-F 8:00 AM - 5:00 PM Central Time. Record requests for emergency care only can be directed to [phone] at any time.[facility] Allergies No known active allergies Medications valACYclovir [...] [facility] place to live 12/11/2022 Comments No Sex and Gender Information Value Date Recorded Sex Assigned at Female 12/11/2022 12:18 PM CDT Legal Sex Female 5:41 PM ORTHOPEDIC PODIATRIST Gender Identity Female 06/25/2020 3:31 PM ORTHOPEDIC PODIATRIST Sexual Orientation Straight 12/11/2022 12 :18 PM [...] patient's age to complete this topic Insurance [employer] EMPLOYEE Care Teams Atmospheric Scientist Relationship Specialty Start Date End Date Elsewhere, Pcp PCP - General Internal Medicine 08/24/21
--- OUTSIDE RECORDS SUMMARY | 2024-04-16 13:19 | XMS_ITS | Referral Summary ---
Author Organization [facility] Address [address] [place] [address] Care Team Providers Care Product Test Engineer Name Role Phone Elsewhere, Pcp Primary Care Provider Unavailabl e Source Comments Patient records contain information from all sites at [facility]. For routine questions regarding patient records, call [phone] during business hours, M-F 8:00 AM - 5:00 PM Central Time. Record requests for emergency care only can be directed to [phone] at any time.[facility] Allergies No known active allergies Medications [...] your living situation today? I have a [facility] place to live 12/11/2022 Comments No Sex and Gender Information Value Date Recorded Sex Assigned at Female 12/11/2022 12:18 PM CDT Legal Sex Female 5:41 PM COLOR ADVISER Gender Identity Female 06/25/2020 3:31 PM COLOR ADVISER Sexual Orientation Straight 12/11/2022 12 :18 PM [...] of Treatment Not on file Insurance [employer] [place] EMPLOYEE Care Teams Product Test Engineer Relationship Specialty Start Date End Date Elsewhere, Pcp PCP - General Internal Medicine 08/24/21
--- OUTSIDE RECORDS SUMMARY | 2024-04-16 13:19 | XMS_ITS ---
Author Organization [facility] Address [address] [place] [address] Care Team Providers Care International Marketing Intern Name Role Phone Unavailable Unavailable Unavailable Surgery Details Not on file Complications Check Surgery Details section. Procedure Estimated Blood Loss Check Surgery Details section. Procedure Findings Check Surgery Details section. Procedure Specimens Taken Check Surgery Details section.
[2024-04-17 11:42] LABS: Strep B DNA Probe POSITIVE (Negative)
[2024-04-17 12:00] LABS: Strep B Susceptibility Needed? No
== END 2024-04-16 13:17 | disposition home or self-care (01) ==
LOC: NFLDREF 13:17
PROVIDERS: PCP Nurse Practitioner Family; Visit Provider Obstetrics & Gynecology
DX: Z34.93 Encounter for supervision of normal pregnancy, unspecified, third trimester (principal); Z3A.36 36 weeks gestation of pregnancy
CPT/HCPCS: 87081; 87653

== ENCOUNTER 2024-04-22 11:15 | Outpatient (CLI) | payer OTHER, SELFPAY ==
--- NOTE | 2024-04-22 11:15 | CRLHL7_ITS ---
For Patients: As a result of the Cures Act, medical imaging exams and procedure reports are released immediately into your electronic medical record. You may view this report before your referring provider. If you have questions, please contact your health care provider. INDICATION: Elevated BMI. COMPARISON: Ob ultrasound from 04/16/2024 FINDINGS: Transabdominal examination of the is performed. A single intrauterine gestation is seen in cephalic presentation with regular cardiac activity at 141 beats per minute. The placenta is posterior and to the right and is free of the cervical os. The amniotic fluid volume is normal. The DVP is normal at 5.6 cm. The biophysical profile score is 8/8 with no points off. IMPRESSION: 1. Single intrauterine gestation in cephalic presentation with regular cardiac activity. 2. Normal DVP at 5.6 cm. 3. Normal biophysical profile score of 8/8. Dictated by Jovanni Ludwig MD @ 04/22/2024 10:42:43 PM (Electronically Signed)
--- OUTSIDE RECORDS SUMMARY | 2024-04-22 11:17 | XMS_ITS | Clinical Summary ---
Author Organization [facility] Address [address] [place] [address] Care Team Providers Care Intellectual Property Counsel Name Role Phone Elsewhere, Pcp Primary Care Provider Unavailabl e Source Comments Patient records contain information from all sites at [facility]. For routine questions regarding patient records, call [phone] during business hours, M-F 8:00 AM - 5:00 PM Central Time. Record requests for emergency care only can be directed to [phone] at any time.[facility] Allergies No known active allergies Medications valACYclovir [...] your living situation today? I have a [facility] place to live 12/11/2022 Comments No Sex and Gender Information Value Date Recorded Sex Assigned at Female 12/11/2022 12:18 PM CDT Legal Sex Female 5:41 PM BED CONTROL SPECIALIST Gender Identity Female 06/25/2020 3:31 PM BED CONTROL SPECIALIST Sexual Orientation Straight 12/11/2022 12 :18 [...] 11/07/2032 11/07/2022, 01/21/2013, 08/15/2004, Additional history exists IPV Vaccines Completed 11/30/1997, 07/1993, 1993, Additional history exists Hepatitis B Vaccines Completed 05/17/2000, 12/06/1999, 11/03/1999 Varicella Vaccines Completed 01/21/2013, 11/03/1999 Pneumococcal vaccine (0-64 years) Aged Out No longer eligible based on patient's age to complete this topic Insurance [employer] EMPLOYEE Care Teams Intellectual Property Counsel Relationship Specialty Start Date End Date Elsewhere, Pcp PCP - General Internal Medicine 08/24/21
--- OUTSIDE RECORDS SUMMARY | 2024-04-22 11:17 | XMS_ITS | Referral Summary ---
Author Organization [facility] Address [address] [place] [address] Care Team Providers Care Offal Separator Name Role Phone Elsewhere, Pcp Primary Care Provider Unavailabl e Source Comments Patient records contain information from all sites at [facility]. For routine questions regarding patient records, call [phone] during business hours, M-F 8:00 AM - 5:00 PM Central Time. Record requests for emergency care only can be directed to [phone] at any time.[facility] Allergies No known active allergies Medications valACYclovir [...] your living situation today? I have a [facility] place to live 12/11/2022 Comments No Sex and Gender Information Value Date Recorded Sex Assigned at Female 12/11/2022 12:18 PM CDT Legal Sex Female 5:41 PM RN HEART Gender Identity Female 06/25/2020 3:31 PM RN HEART Sexual Orientation Straight 12/11/2022 12 :18 PM [...] of Treatment Not on file Insurance [employer] [place] EMPLOYEE Care Teams Offal Separator Relationship Specialty Start Date End Date Elsewhere, Pcp PCP - General Internal Medicine 08/24/21
--- OUTSIDE RECORDS SUMMARY | 2024-04-22 11:17 | XMS_ITS ---
Author Organization [facility] Address [address] [place] [address] Care Team Providers Care Costume Specialist Name Role Phone Unavailable Unavailable Unavailable Surgery Details Not on file Complications Check Surgery Details section. Procedure Estimated Blood Loss Check Surgery Details section. Procedure Findings Check Surgery Details section. Procedure Specimens Taken Check Surgery Details section.
== END 2024-04-22 11:16 | disposition home or self-care (01) ==
LOC: US 11:15
PROVIDERS: PCP Nurse Practitioner Family; Visit Provider Obstetrics & Gynecology
DX: Z34.93 Encounter for supervision of normal pregnancy, unspecified, third trimester (principal); Z3A.36 36 weeks gestation of pregnancy
CPT/HCPCS: 76819

== ENCOUNTER 2024-04-22 13:28 | Outpatient (CLI) | payer OTHER, SELFPAY ==
[2024-04-22] VITALS (17 sets, daily range): BP systolic 124–145; BP diastolic 70–79; PULSE 74–96; RESP 16; TEMP 36.8; O2SAT 97–100
--- OUTSIDE RECORDS SUMMARY | 2024-04-22 13:30 | XMS_ITS | Referral Summary ---
Author Organization [facility] Address [address] [place] [address] Care Team Providers Care Stock Driver Name Role Phone Elsewhere, Pcp Primary Care Provider Unavailabl e Source Comments Patient records contain information from all sites at [facility]. For routine questions regarding patient records, call [phone] during business hours, M-F 8:00 AM - 5:00 PM Central Time. Record requests for emergency care only can be directed to [phone] at any time.[facility] Allergies No known active allergies Medications valACYclovir [...] your living situation today? I have a [facility] place to live 12/11/2022 Comments No Sex and Gender Information Value Date Recorded Sex Assigned at Female 12/11/2022 12:18 PM CDT Legal Sex Female 5:41 PM ECHOCARDIOGRAPHY TECHNOLOGIST Gender Identity Female 06/25/2020 3:31 PM ECHOCARDIOGRAPHY TECHNOLOGIST Sexual Orientation Straight 12/11/2022 12 :18 PM [...] of Treatment Not on file Insurance [employer] [place] EMPLOYEE Care Teams Stock Driver Relationship Specialty Start Date End Date Elsewhere, Pcp PCP - General Internal Medicine 08/24/21
--- OUTSIDE RECORDS SUMMARY | 2024-04-22 13:30 | XMS_ITS | Clinical Summary ---
Author Organization [facility] Address [address] [place] [address] Care Team Providers Care Communications Equipment Supervisor Name Role Phone Elsewhere, Pcp Primary Care Provider Unavailabl e Source Comments Patient records contain information from all sites at [facility]. For routine questions regarding patient records, call [phone] during business hours, M-F 8:00 AM - 5:00 PM Central Time. Record requests for emergency care only can be directed to [phone] at any time.[facility] Allergies No known active allergies Medications [...] your living situation today? I have a [facility] place to live 12/11/2022 Comments No Sex and Gender Information Value Date Recorded Sex Assigned at Female 12/11/2022 12:18 PM CDT Legal Sex Female 5:41 PM UPSET WELDING MACHINE OPERATOR Gender Identity Female 06/25/2020 3:31 PM UPSET WELDING MACHINE OPERATOR Sexual Orientation Straight 12/11/2022 12 :18 [...] patient's age to complete this topic Insurance [employer] EMPLOYEE Care Teams Communications Equipment Supervisor Relationship Specialty Start Date End Date Elsewhere, Pcp PCP - General Internal Medicine 08/24/21
--- OUTSIDE RECORDS SUMMARY | 2024-04-22 13:30 | XMS_ITS ---
Author Organization [facility] Address [address] [place] [address] Care Team Providers Care Riprap Placer Name Role Phone Unavailable Unavailable Unavailable Surgery Details Not on file Complications Check Surgery Details section. Procedure Estimated Blood Loss Check Surgery Details section. Procedure Findings Check Surgery Details section. Procedure Specimens Taken Check Surgery Details section.
[2024-04-22 13:48] LABS: Hematocrit 38.4 % (33.0-51.0); Hemoglobin* 12.6 gm/dL (12.0-16.0); Mean Corpuscular HGB Conc 33 gm/dL (32-36); Mean Corpuscular Hemoglobin 30 pg (26-34); Mean Corpuscular Volume 92 fL (80-100); Platelet Count* 223 K/uL (140-440); Red Blood Count 4.18 m/uL (4.00-5.20); White Blood Count* 8.95 K/uL (4.50-11.00)
[2024-04-22 13:50] LABS: Slide Review Reflex No
[2024-04-22 14:04] LABS: Aspartate Amino Transferase* 22 U/L (12-35); Creatinine* 0.7 mg/dL (0.5-1.5); Estimated Glomerular Filt Rate 119 ml/min
[2024-04-22 14:05] LABS: Alanine Aminotransferase* 15 U/L (4-35); Blood Urea Nitrogen* 11 mg/dL (5-24)
[2024-04-22 14:49] LABS: Total Protein Urine 13 mg/dL
[2024-04-22 14:51] LABS: Creatinine Urine 67.9 mg/dL; Protein Creatinine Ratio Urine 0.19 (0-0.19)
--- NOTE | 2024-04-22 17:30 | PC.OBNST ---
NST Note NST Note Start: 04/22/24 13:31 Freq: ONCE Status: Discharge Protocol: Document 04/22/24 17:21 MMB (Rec: 04/22/24 17:25 MMB [id number]) NST Note 1 Para (# of births) 0 EDC 05/14/24 Gestational Age In Weeks & Days 36 Weeks & 6 Days Patient Presented with Complaint(s) of Other Other Complaints Sent down from clinic with elevated BP of 144/92 for R/O Pre-E. Reactive Yes Appropriate for Gestational Age Yes ROMA Isaac RN Date 04/22/24 Reactive Yes Appropriate for Gestational Age Yes ROMA Goff RN Date 04/22/24 OB NST charge Yes Complete NST Note via Write Note Yes The provider's electronic signature indicates the NST is reactive/appropriate for gestational age. *Note to provider: If an addendum is required, open the patient's chart and click on the note under the Nurse/Allied Health tab.
== END 2024-04-22 15:50 | disposition home or self-care (01) ==
LOC: OB OUT 13:29 → OB 13:30
PROVIDERS: PCP Nurse Practitioner Family; Visit Provider Obstetrics & Gynecology
DX: O16.3 Unspecified maternal hypertension, third trimester (principal); Z3A.36 36 weeks gestation of pregnancy
CPT/HCPCS: 36415; 59025; 76819; 82565; 82570; 84156; 84450; 84460; 84520; 85027; G0463

== ENCOUNTER 2024-04-30 11:16 | Outpatient (CLI) | payer OTHER, SELFPAY ==
--- NOTE | 2024-04-30 11:15 | CRLHL7_ITS ---
For Patients: As a result of the Century Cures Act, medical imaging exams and procedure reports are released immediately into your electronic medical record. You may view this report before your referring provider. If you have questions, please contact your health care provider. INDICATION: Elevated BMI. COMPARISON: Biophysical profile from 04/22/2024. FINDINGS: Transabdominal examination of the is performed. A single intrauterine gestation is seen in cephalic presentation with regular cardiac activity at 138 beats per minute. The placenta is posterior and is free of the cervical os. The placental grade is 3 and the amniotic fluid volume is normal. The DVP is normal at 3.5 cm, decreased compared to previous measurement of 5.6 cm. The kidneys are normal in appearance. The biophysical profile score is 8/8 with no points off. The findings are similar to the previous biophysical profile IMPRESSION: 1. Single intrauterine gestation in cephalic presentation with regular cardiac activity. 2. Normal DVP at 3.5 cm, decreased from the previous study. 3. Normal biophysical profile score of 8/8. Dictated by Jovanni Ludwig MD @ 04/30/2024 11:31:02 PM (Electronically Signed)
--- OUTSIDE RECORDS SUMMARY | 2024-04-30 11:18 | XMS_ITS | Referral Summary ---
Author Organization [facility] Address [address] [place] [address] Care Team Providers Care Project Management Manager Name Role Phone Elsewhere, Pcp Primary Care Provider Unavailabl e Source Comments Patient records contain information from all sites at [facility]. For routine questions regarding patient records, call [phone] during business hours, M-F 8:00 AM - 5:00 PM Central Time. Record requests for emergency care only can be directed to [phone] at any time.[facility] Allergies No known active allergies [...] your living situation today? I have a [facility] place to live 12/11/2022 Comments No Sex and Gender Information Value Date Recorded Sex Assigned at Female 12/11/2022 12:18 PM CDT Legal Sex Female 5:41 PM GLASS SETTER Gender Identity Female 06/25/2020 3:31 PM GLASS SETTER Sexual Orientation Straight 12/11/2022 12 :18 PM [...] of Treatment Not on file Insurance [employer] [place] EMPLOYEE Care Teams Project Management Manager Relationship Specialty Start Date End Date Elsewhere, Pcp PCP - General Internal Medicine 08/24/21
--- OUTSIDE RECORDS SUMMARY | 2024-04-30 11:18 | XMS_ITS | Clinical Summary ---
Author Organization [facility] Address [address] [place] [address] Care Team Providers Care Rag Sorter Name Role Phone Elsewhere, Pcp Primary Care Provider Unavailabl e Source Comments Patient records contain information from all sites at [facility]. For routine questions regarding patient records, call [phone] during business hours, M-F 8:00 AM - 5:00 PM Central Time. Record requests for emergency care only can be directed to [phone] at any time.[facility] Allergies No known active allergies Medications valACYclovir [...] your living situation today? I have a [facility] place to live 12/11/2022 Comments No Sex and Gender Information Value Date Recorded Sex Assigned at Female 12/11/2022 12:18 PM CDT Legal Sex Female 5:41 PM ADVERTISING SALES ASSOCIATE Gender Identity Female 06/25/2020 3:31 PM ADVERTISING SALES ASSOCIATE Sexual Orientation Straight 12/11/2022 12 :18 PM [...] to complete this topic Insurance [employer] EMPLOYEE Care Teams Rag Sorter Relationship Specialty Start Date End Date Elsewhere, Pcp PCP - General Internal Medicine 08/24/21
--- OUTSIDE RECORDS SUMMARY | 2024-04-30 11:18 | XMS_ITS ---
Author Organization [facility] Address [address] [place] [address] Care Team Providers Care Payroll Coordinator Name Role Phone Unavailable Unavailable Unavailable Surgery Details Not on file Complications Check Surgery Details section. Procedure Estimated Blood Loss Check Surgery Details section. Procedure Findings Check Surgery Details section. Procedure Specimens Taken Check Surgery Details section.
== END 2024-04-30 11:17 | disposition home or self-care (01) ==
LOC: US 11:16
PROVIDERS: PCP Nurse Practitioner Family; Visit Provider Obstetrics & Gynecology
DX: O99.210 Obesity complicating pregnancy, unspecified trimester (principal); Z68.37 Body mass index [BMI] 37.0-37.9, adult
CPT/HCPCS: 76819

== ENCOUNTER 2024-04-30 11:56 | Inpatient (IN) | payer OTHER, SELFPAY ==
[2024-04-30] VITALS (19 sets, daily range): BP systolic 118–147; BP diastolic 60–92; PULSE 67–107; RESP 14–16; TEMP 36.8–36.9; O2SAT 85–100; BMI 44.3
--- OUTSIDE RECORDS SUMMARY | 2024-04-30 12:01 | XMS_ITS | Clinical Summary ---
Author Organization [facility] Address [address] [place] [address] Care Team Providers Care Precision Agronomist Name Role Phone Elsewhere, Pcp Primary Care Provider Unavailabl e Source Comments Patient records contain information from all sites at [facility]. For routine questions regarding patient records, call [phone] during business hours, M-F 8:00 AM - 5:00 PM Central Time. Record requests for emergency care only can be directed to [phone] at any time.[facility] Allergies No known active allergies Medications valACYclovir [...] your living situation today? I have a [facility] place to live 12/11/2022 Comments No Sex and Gender Information Value Date Recorded Sex Assigned at Female 12/11/2022 12:18 PM CDT Legal Sex Female 5:41 PM FERMENTER WINE Gender Identity Female 06/25/2020 3:31 PM FERMENTER WINE Sexual Orientation Straight 12/11/2022 12 :18 PM [...] patient's age to complete this topic Insurance [employer] EMPLOYEE Care Teams Precision Agronomist Relationship Specialty Start Date End Date Elsewhere, Pcp PCP - General Internal Medicine 08/24/21
--- OUTSIDE RECORDS SUMMARY | 2024-04-30 12:01 | XMS_ITS ---
Author Organization [facility] Address [address] [place] [address] Care Team Providers Care Psychiatric Np Name Role Phone Unavailable Unavailable Unavailable Surgery Details Not on file Complications Check Surgery Details section. Procedure Estimated Blood Loss Check Surgery Details section. Procedure Findings Check Surgery Details section. Procedure Specimens Taken Check Surgery Details section.
--- OUTSIDE RECORDS SUMMARY | 2024-04-30 12:01 | XMS_ITS | Referral Summary ---
Author Organization [facility] Address [address] [place] [address] Care Team Providers Care Wireless Internet Installer Name Role Phone Elsewhere, Pcp Primary Care Provider Unavailabl e Source Comments Patient records contain information from all sites at [facility]. For routine questions regarding patient records, call [phone] during business hours, M-F 8:00 AM - 5:00 PM Central Time. Record requests for emergency care only can be directed to [phone] at any time.[facility] Allergies No known active allergies Medications valACYclovir [...] living situation today? I have a [facility] place to live 12/11/2022 Comments No Sex and Gender Information Value Date Recorded Sex Assigned at Female 12/11/2022 12:18 PM CDT Legal Sex Female 5:41 PM COUNTY HOME DEMONSTRATOR Gender Identity Female 06/25/2020 3:31 PM COUNTY HOME DEMONSTRATOR Sexual Orientation Straight 12/11/2022 12 :18 PM [...] of Treatment Not on file Insurance [employer] Care Teams Wireless Internet Installer Relationship Specialty Start Date End Date Elsewhere, Pcp PCP - General Internal Medicine 08/24/21
[2024-04-30 13:38] LABS: Hemoglobin* 11.5 gm/dL (12.0-16.0); Mean Corpuscular HGB Conc 33 gm/dL (32-36); Mean Corpuscular Hemoglobin 30 pg (26-34); Mean Corpuscular Volume 92 fL (80-100); Platelet Count* 200 K/uL (140-440); Red Blood Count 3.81 m/uL (4.00-5.20); White Blood Count* 8.11 K/uL (4.50-11.00)
[2024-04-30 13:43] LABS: Slide Review Reflex No
[2024-04-30 14:07] LABS: Creatinine* 0.6 mg/dL (0.5-1.5); Est. Creatinine Clearance* 156.78; Estimated Glomerular Filt Rate 123 ml/min
[2024-04-30 14:08] LABS: Alanine Aminotransferase* 13 U/L (4-35); Aspartate Amino Transferase* 24 U/L (12-35); Blood Urea Nitrogen* 9 mg/dL (5-24)
[2024-04-30 14:42] LABS: Total Protein Urine 11 mg/dL
[2024-04-30 14:43] LABS: Creatinine Urine 35.2 mg/dL; Protein Creatinine Ratio Urine 0.31 (0-0.19)
--- NOTE | 2024-04-30 16:04 | P.LDBA_ITS ---
Subjective History of Present Illness Narrative: Patient is being admitted to Labor and Delivery for induction of labor in the setting of newly diagnosed preeclampsia without severe features. She is a 29 year old at 38 weeks gestation. Her full history and physical was dictated by Dr. Mcnair on 04/22/24. Please see this for details. Elicia presented to the clinic for routine OB visit. There, she was noted to be hypertensive. She was previously seen in triage for high blood pressures, where with this episode she now met criteria for hypertensive disorder of . Denies headache, vision changes or right upper quadrant pain. Rare contractions, but no vaginal bleeding or leaking of fluid. Endorses active movement. She had an 01/23 BPP today. Patient was transferred to the Center. On arrival, labs were obtained and are notable only for proteinuria with UPCR of 0.31. Platelets, creatinine and AST/ALT were within normal limits. No other change in her history. Specific Issues/Plans G 1 P 0 Partner: Al Expecting a BOY!! H&P 04/22/24 Dr. Mcnair # BMI 37.5. Recently lost >100lbs with Mounjaro. Patient worried about weight gain in after losing so much weight recently. Encouraged her to do her best to eat healthy meals most of the time. Encouraged her to go for walks on a regular basis. If she is struggling with disordered eating or thoughts surrounding waking in to let us know. # Excess weight gain in -60lb as of 32 weeks * hemoglobin A1C 4.8% * Recommended daily baby aspirin starting at 12 weeks * 32 week growth US: EFW 2115g, 75%ile * 36 week growth: EFW 2843g, 53%ile. MVP 3.1cm. * BPP or NST weekly starting at 37 weeks - testing form completed # UTI sxs w/ negative urine culture, suspect bladder pain syndrome/interstitial cystitis 02/14/2024: prescribed Vistaril 25-50 mg PO QHS but did not take; symptoms resolved spontaneously # Elevated BP on 04/22/24, normalizing on extended monitoring on Center. Normal HELLP labs. Sent home with BP cuff. To return to clinic 04/24/24. Ultrasounds: 10/10/2023: 9 weeks, 1 day by CRL, sonographic VIRY 05/12/2024 10/18/2023: 1.6 cm left perigestational hemorrhage. Viable intrauterine . 01/01/2024: Right-sided placenta without previa. Normal fluid. EFW 96%, AC > 97%, BPD 81%, HC 66%, FL 31%. Incomplete visualization of RVOT and CSP. Otherwise normal anatomy. 01/31: Normal heart views. No abnormality of the cavum septum pellucidum. 03/19/2024: EFW 74%, AC 77%, BPD 97%, HC 70%. 04/16: Cephalic, EFW 2843 g (53%), SDP 3.1 cm TDAP: 03/07/24 RSV: 04/16/24 Flu: Planning to complete via employer COVID: declined GBS: positive; no antibiotic allergies OB - Problem Based A/P Additional Plan (1) Preeclampsia: Status: Acute (2) Excessive weight gain during : Status: Acute (3) : Status: Acute Plan Elicia is a 29-year-old at 38 weeks 0 days gestational age admitted for induction of labor in the setting of preeclampsia without severe features. is otherwise complicated by excess weight gain of (conceived shortly after losing >100lb on Mounjaro). - Admit to Labor and delivery for induction of labor - Cervix is 160/-1, status post Cook catheter placement with 60 mL instilled in the uterine and vaginal balloons - Plan to leave cook in situ for 12 hours or until spontaneous expulsion occurs - Start Pitocin 6 hours after cook placement - Diligent blood pressure monitoring ongoing. Unremarkable HELLP labs on admission, repeat as clinically indicated. No signs or symptoms of severe features at this time. Magnesium sulfate is not indicated. - Patient is a candidate for therapeutic rest if desired overnight - Blood type O-positive, obtain type and screen on admission - EFW by US on 04/16 is 2843g at 53%ile - GBS positive, start ampicillin per protocol with initiation of Pitocin or rupture membranes. OB Exam Physical Exam Vital signs: Temp Pulse Resp BP Pulse Ox 98.3 F 72 16 144/92 H 85 L 04/30/24 15:36 04/30/24 15:36 04/30/24 14:37 04/30/24 15:36 04/30/24 15:37 Narrative: General: Alert and oriented, in no acute distress Psych: Appropriate mood and affect Abdomen: Gravid, nontender. heart rate: Category 1. Baseline of 135 beats per minute, moderate variability, accelerations present and decelerations absent at this time. There was 1 variable deceleration shortly after her arrival when patient was lying flat on her back. This has resolved with repositioning. Cervix: 1/60/-1. Cook catheter placed without difficulty. Presentation: Cephalic by ultrasound today
[2024-04-30] MEDS: OXYTOCIN 30 unit/500 ML in NS 30 UNIT/500 ML BAG IVPB (20:48)
[2024-04-30] MEDS: LACTATED RINGERS 1000 ML 1,000 ML 30 ML IV (20:48)
[2024-04-30] MEDS: VALACYCLOVIR HCL 500 MG TABLET PO (20:51)
[2024-04-30] MEDS: hydrOXYzine pamoate 25 MG CAPSULE 100 MG PO (22:53)
[2024-05-01] VITALS (27 sets, daily range): BP systolic 107–147; BP diastolic 55–89; PULSE 64–94; RESP 14–18; TEMP 36.3–36.9; O2SAT 98–100
[2024-05-01] MEDS: ONDANSETRON 2 MG/ML inj 4 MG IV (02:31)
[2024-05-01] MEDS: MORPHINE 10 MG/ML inj 5 MG IM (02:38)
[2024-05-01] MEDS: AMPICILLIN 2 GM in 0.9 % SODIUM CHLORIDE Mini-bag 100 ML IVPB (03:25)
[2024-05-01] MEDS: AMPICILLIN 1 GM in 0.9 % SODIUM CHLORIDE Mini-bag 100 ML IVPB (07:15)
--- NOTE | 2024-05-01 08:33 | PM.OBPNL ---
Subjective Time Seen by Provider: 08:33 Date Seen: 05/01/24 Narrative: Subjective: Patient is getting more uncomfortable with contractions. Pitocin: 6 milliunits/minute. Verbal consent obtained for artificial rupture of membranes Vital signs: Per electronic medical record. EFM: Baseline 13os, positive accelerations, sporadic variable decelerations, moderate variability, reactive. Category 2. [place]: Contractions every 2-4 minutes. SVE: 7 cm/90 %/ 0. AROM at 8:30 a.m. clear fluid Assessment: 29-year-old 1 para 0 at 38 weeks 1 days gestation undergoing induction of labor for preeclampsia without severe features Plan: 1. Continue Pitocin per labor induction protocol. 2. Planning an unmedicated . 3. GBS positive, receiving ampicillin for GBS prophylaxis 4. Blood type O positive Objective Vital Signs: Last Vital Signs Temp 98.3 F 05/01/24 06:34 Pulse 88 05/01/24 07:26 Resp 14 05/01/24 07:26 BP 136/83 05/01/24 07:26 Pulse Ox 98 05/01/24 07:26
--- NOTE | 2024-05-01 10:30 | PM.OBPNL ---
Subjective Time Seen by Provider: 10:30 Date Seen: 05/01/24 Narrative: Subjective: Patient is very uncomfortable with contractions. There were decelerations that were noted but contractions were difficult to monitor secondary to patient body habitus so I was asked to place an IUPC. Verbal consent obtained to place the IUPC. Patient requesting fentanyl. Pitocin stopped at approximately 10:00 a.m. Vital signs: Per electronic medical record. EFM: Baseline 136, positive acceleration with placement of the IUPC, early decelerations, moderate variability, nonreactive. Category 2. [place]: Not monitoring contractions well. IUPC placed contractions every 1-2 minutes and adequate labor. SVE: 7 cm/90%/+1. Assessment: 29-year-old 1 para 0 at 38 weeks 1 days gestation undergoing induction of labor due to preeclampsia without severe features Plan: 1. Keep Pitocin off as contractions appear to be adequate with IUPC. 2. Considering epidural for labor analgesia Objective Vital Signs: Last Vital Signs Temp 98.3 F 05/01/24 06:34 Pulse 79 05/01/24 09:33 Resp 14 05/01/24 07:26 BP 147/89 H 05/01/24 09:33 Pulse Ox 98 05/01/24 07:26
[2024-05-01] MEDS: fentaNYL 100 MCG/2 ML inj 50 MCG IVP (10:41)
--- NOTE | 2024-05-01 11:36 | W.PM.OBVAGDE ---
OB Procedure Vag Delivery Mother Details Mother Details: The patient is a 29 year-old, 1, Para 1, admitted on 04/30/24 at 38 weeks and 0 Days gestation for induction of labor due to preeclampsia without severe features. AROM occurred at 8:25 a.m. on 05/01/2024 with clear fluid. Labor Analgesia: Fentanyl Pitocin: Yes Labor onset: 05/01/2024 at 8:25 a.m.. Complete: 05/01/2024 at 10:50 a.m.. Pushin05/01/2024 at 10:57 a.m.. heart tones during second stage were: Category 2, reassuring with moderate variability and variable decelerations during contractions with immediate return to baseline. At 11:12 a.m. a viable male delivered in vertex direct OA presentation over small first-degree periurethral laceration via spontaneous vaginal delivery. The was placed on maternal abdomen. Cord was clamped and cut after a 60 second delay. Nose and mouth were bulb suctioned. weight pending. 8 at 1 minute and 8 at 5 minutes. Shoulder dystocia: No. Nuchal cord: Yes: Baby delivered through the loop of cord. Placenta delivered spontaneously and complete at 11:28 a.m. with a 3 vessel cord. Laceration(s): First-degree periurethral that did not require repair Blood loss: 100 mL. Blood loss measurement type: Quantitative Sponge and needles counts are correct. Specimen: Placenta Mother and were stable after delivery. 's name: Jesus The patient is planning on breast feeding. : 1 Weeks Gestation: 38 Admission Date: 04/30/24 Additional Details Amniotic Membrane Status: AROM Amniotic Membrane Rupture Date: 05/01/24 Amniotic Membrane Rupture Time: 10:57 Amniotic Membrane Fluid Description: Clear Analgesia/Anesthesia Type: Fentanyl Waterbirth: No Pitcoin: Yes Intrapartal Events: Labor Induction Induction Method: Intracervical balloon catheter, per pitocin protocol and AROM Labor Onset: 08:25 Complete: 10:50 Pushin:57 Heart: heart tones during second stage were category 2: Moderate variability with variable decelerations during contractions with immediate return to baseline. Delivery Details Delivery Date: 05/01/24 Delivery Time: 11:12 Route of delivery: Infant Gender: Male Infant Viability: Alive; Heart Rate Present Position at Delivery: OA Delivery Details: Delivered over first-degree periurethral laceration that did not require repair via spontaneous vaginal delivery. Infant was placed on maternal abdomen.? Cord was clamped and cut after a 60 second delay. Nose and mouth were bulb suctioned.? Infant weight pending. 1 Minute Interval Total Score: 8 5 Minute Interval Total Score: 8 Additional Details Shoulder Dystocia: No Placenta Delivery Time: 11:28 Placental Delivery Description: Spontaneous Procedure Done: Global Blood Loss: 100 Laceration: Periurethral - 1st Degree Blood Loss Measurement Type: QBL Sponge/Need Count Correct: Yes Cord Vessel Description: 3 Vessels Event Summary Status: Mother and were stable after delivery. Disposition: floor
[2024-05-01] MEDS: VALACYCLOVIR HCL 500 MG TABLET PO (20:04)
[2024-05-01 23:36] LABS: Rapid Plasma Reagin (RPR) Non Reactive (Non Reactive)
[2024-05-02 02:36] VITALS: BP 117/78; PULSE 78; RESP 20; TEMP 36.7; O2SAT 97
[2024-05-02 06:19] LABS: Hemoglobin* 11.3 gm/dL (12.0-16.0)
[2024-05-02 06:24] VITALS: BP 117/82; PULSE 74; RESP 20; O2SAT 98
[2024-05-02 08:07] VITALS: BP 120/80; PULSE 77; RESP 20; O2SAT 98
--- NOTE | 2024-05-02 08:07 | PM.OBPNVD1 ---
OB - PN:Subj Subjective Date Seen: 05/02/24 Narrative: Elicia is a 29 y.o. G1 P 1 who was admitted to L & D for IOL for pre-eclampsia without SF. ?She had a NVD that was uncomplicated. The patient feels well. ?The pain is well controlled with current medications. ?She has no new complaints. ?She is breast feeding and reports things are going okay. She is working with the RN's and will see today. the patient has done well.? Vitals have been stable.? She has remained afebrile.? Has a good appetite, is tolerating a general diet. ?She is voiding without difficulty.? She is passing gas and has not had a bowel movement.? She is ambulating and denies any dizziness.? Has small amount of rubra lochia. Problems: none OB - PN: Obj Exam Physical Exam: Vital signs: Temp Pulse Resp BP Pulse Ox O2 Del Method 98.1 F 74 20 117/82 98 Room Air 05/02/24 02:36 05/02/24 06:24 05/02/24 06:24 05/02/24 06:24 05/02/24 06:24 05/02/24 06:24 Narrative: GENERAL APPEARANCE:? normal affect, alert, no distress MOOD:? appropriate CHEST:? clear to auscultation HEART:? regular rate and rhythm ABDOMEN:? soft, non-tender the uterine fundus is at Umbilicus, Midline and is appropriate for the stage of recovery. PERINEUM:? mild edema of the perineum, there is a periurethral,?1st degree, that is healing well. EXTREMITIES:? normal and +1 edema OB - PN: Obj Data Labs Labs: Laboratory Results - last 24 hr 04/30/24 05/02/24 13:28 06:07 Hgb 11.3 L RPR Screen Non Reactive OB - PN: A/P Delivery Assessment and Plan (1) care and examination immediately after delivery: Status: Acute (2) Preeclampsia: Status: Acute (3) Lactating mother: Status: Acute Plan day: 1 Comments: plan: Routine care , may see if needed Hgb 11.3. Pre-E diagnosed by elevated BP greater than 4 hours apart Labs WNL BP has been stable , continue to monitor Anticipate discharge tomorrow
[2024-05-02 12:30] VITALS: BP 119/78; PULSE 74; RESP 18; O2SAT 96
[2024-05-02 16:34] VITALS: BP 128/83; PULSE 70; RESP 18; O2SAT 96
[2024-05-02] MEDS: IBUPROFEN 600 MG TABLET PO (19:39)
[2024-05-02 20:48] VITALS: BP 134/85; PULSE 74; RESP 16; TEMP 36.4
[2024-05-03 01:13] VITALS: BP 125/85; PULSE 74; RESP 18; TEMP 36.5
[2024-05-03 04:44] VITALS: BP 133/78; PULSE 88; TEMP 37
[2024-05-03 07:55] VITALS: BP 133/84; PULSE 78; RESP 19; TEMP 36.4; O2SAT 96
[2024-05-03] MEDS: LANOLIN CREAM 1 APPLIC TOPICAL (09:10)
--- NOTE | 2024-05-03 09:30 | P.DS_ITS ---
DS: Providers Provider Time Seen by Provider: 08:45 Date Seen: 05/03/24 Date of admission: 04/30/24 11:56 Primary care physician: Loyda Ross CNP Admitting Clinician: Genna Pretty MD Attending Physician on discharge: Genna Pretty MD Exam Narrative: Exam Narrative: General: Alert and oriented, in no acute distress Psych: Appropriate mood and affect Abdomen: Soft, nontender nondistended. No rebound or guarding. Fundus at umbilicus. Extremities: 1+ pitting edema bilaterally. Calves are without erythema, warmth or tenderness. Const: Vital Signs, click to edit/add: Vital Signs - 24 hr 05/02/24 12:30 05/02/24 16:34 05/02/24 20:48 Temperature 97.6 F Pulse Rate [Left P ulse Oximeter] 74 70 74 Respiratory Rate 18 18 16 Blood Pressure [Le ft Arm] 119/78 128/83 134/85 Pulse Oximetry 96 96 Oxygen Delivery Me thod Room Air Room Air Room Air 05/03/24 01:13 05/03/24 04:44 05/03/24 07:55 Temperature 97.7 F 98.6 F 97.5 F L Pulse Rate [Left P ulse Oximeter] 74 88 78 Respiratory Rate 18 19 Blood Pressure [Le ft Arm] 125/85 133/78 133/84 Pulse Oximetry 96 Oxygen Delivery Me thod Room Air Room Air Room Air OB - DS: Summary Hospital Course Hospital Course: The patient is a 29 year old G 1 P 1 at 38 weeks gestation that was admitted to the Center on 04/30/24 for induction of labor for preeclampsia without severe features. She had an uncomplicated vaginal delivery. She delivered a viable male . She is breast feeding. the patient has done well. Vital signs have been entirely within normal limits over the last 24 hours. Robust urine output. She denies headache, vision changes or right upper quadrant pain. Pain is well controlled on oral regimen. Lochia is appropriate, patient described as small volume. She is tolerating p.o. intake without nausea or vomiting. Denies fever/chills, dizziness/lightheadedness, chest pain or shortness of breath. Elicia is bonding well with baby Jesus. She is without concerns, does not think her milk has come in yet. Infant Gender: Male Time Spent with Patient Time attestation: Total time spent providing and/or coordinating discharge services: Discharge Plan Discharge Disposition: Home, Self-Care Date of Admission: 04/30/24 11:56 Primary Care Provider: Loyda Ross Condition: Stable Anticipated Discharge Date/Time: 05/03/24 09:32 Discharge Medications: Continued DHA 200 mg capsule 200 mg PO DAILY cholecalciferol (vitamin D3) 25 mcg (1,000 unit) capsule 25 mcg PO QDAY valacyclovir [Valtrex] 500 mg tablet 500 mg PO QDAY calcium carbonate [Calcium 600] 600 mg calcium (1,500 mg) tablet 600 mg PO QDAY Discontinued aspirin 81 mg tablet,chewable 81 mg PO QDAY Discharge Orders: Discharge Order (Routine); Ordered 05/03/24 Ordered By: Genna Pretty Additional Instructions: Discharge instructions were reviewed with the patient including signs and symptoms of infection and home going medications Nothing vaginally for 6 weeks: no tampons or intercourse Do not drive while taking narcotic pain medication(s) Off Work or School for 8 weeks Symptoms to report to doctor: * Bleeding that saturates more than one pad per hour * Passing clots larger than the size of a golf ball * Pain not relieved by prescribed medication * Fever above 100.4 degrees Fahrenheit * A foul vaginal odor * Difficulty in emotions, mood, and functions * Thoughts of hurting yourself and/or * Painful, reddened area in your breast * Any drainage, redness, or tenderness in your IV/epidural site * Severe headache that doesn't improve after taking medications * Changes in vision, including temporary loss of vision, blurred vision, and/or light sensitivity * Upper abdominal pain (usually under ribs on the right side) * Decrease in urination or painful, frequent urinating * Chest pain * Shortness of breath * Tenderness or pain with redness and/swelling in the calf(s) of your leg [facility] for a BP check 05/06 or 05/07. Call with BP greater than or equal to 160/110. Optional 2-week visit: discuss infant feeding concerns, review control options and screen for anxiety/depression. 6-week visit for an annual exam. consultation services are available to all mothers and babies for the first year after delivery.? To make an appointment, please call [phone]. Follow Up Appointments: Loyda Ross ROAD MENDER [Primary Care Provider] - Forms: [employer] Info Instructions
== END 2024-05-03 12:40 | disposition home or self-care (01) | DRG 807 ==
PROVIDERS: Obstetrics & Gynecology; Admitting Provider Obstetrics & Gynecology; PCP Nurse Practitioner Family; Visit Provider Obstetrics & Gynecology
DX: O14.04 Mild to moderate pre-eclampsia, complicating childbirth (principal); Z37.0 Single live birth; Z3A.38 38 weeks gestation of pregnancy; O70.0 First degree perineal laceration during delivery; O26.03 Excessive weight gain in pregnancy, third trimester; O16.3 Unspecified maternal hypertension, third trimester; O99.214 Obesity complicating childbirth; O99.824 Streptococcus B carrier state complicating childbirth
CPT/HCPCS: 36415; 59200; 82565; 82570; 84156; 84450; 84460; 84520; 85018; 85027; 86592; 86850; 86900; 86901; 88307; A9270; C1726; J0290; J2270; J2405; J3010; J7120

== ENCOUNTER 2024-05-08 10:47 | Outpatient (CLI) | payer OTHER, SELFPAY ==
--- OUTSIDE RECORDS SUMMARY | 2024-05-08 10:50 | XMS_ITS | Clinical Summary ---
Author Organization [facility] Address [address] [place] [address] Care Team Providers Care Rat Poisoner Name Role Phone Elsewhere, Pcp Primary Care Provider Unavailabl e Source Comments Patient records contain information from all sites at [facility]. For routine questions regarding patient records, call [phone] during business hours, M-F 8:00 AM - 5:00 PM Central Time. Record requests for emergency care only can be directed to [phone] at any time.[facility] Allergies No known [...] living situation today? 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
--- OUTSIDE RECORDS SUMMARY | 2024-05-08 10:50 | XMS_ITS ---
Author Organization [facility] Address [address] [place] [address] Care Team Providers Care Alumni Secretary Name Role Phone Unavailable Unavailable Unavailable Surgery Details Not on file Complications Check Surgery Details section. Procedure Estimated Blood Loss Check Surgery Details section. Procedure Findings Check Surgery Details section. Procedure Specimens Taken Check Surgery Details section.
--- OUTSIDE RECORDS SUMMARY | 2024-05-08 10:50 | XMS_ITS | Referral Summary ---
Author Organization [facility] Address [address] [place] [address] Care Team Providers Care Canal Superintendent Name Role Phone Elsewhere, Pcp Primary Care Provider Unavailabl e Source Comments Patient records contain information from all sites at [facility]. For routine questions regarding patient records, call [phone] during business hours, M-F 8:00 AM - 5:00 PM Central Time. Record requests for emergency care only can be directed to [phone] at any time.[facility] Allergies No known active allergies [...] your living situation today? 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
--- NOTE | 2024-05-08 12:56 | P.LACCB_ITS ---
Consult Note - Mom Date of Visit Date of visit: 05/08/24 Reason for consultation: Assistance Needed and Infant Weight Concern Visit Code: Visit Patient's Information Phone number: [phone] : 1 Para: 1 Allergies morphine Adverse Reaction (Intermediate, Verified 04/30/24 12:52) Vomiting Mother's Medical History: Medical History (Updated 05/08/24 @ 00:01 by Background Daemon) Excessive weight gain during ?O26.00 - Excessive weight gain in , unspecified trimester (ICD-10) ?Z34.90 - Encounter for supervision of normal , unspecified, unspecified trimester (ICD-10) History of kidney stones (2011) ?Z87.442 - Personal history of urinary calculi (ICD-10) Delivery Information Delivery type: Vaginal Gestational Age: 38+1 Gestational Weight For Age: AGA Weight: 3.232 kg Baby's Information Baby's Age at Visit: 7 days Baby's Provider or Clinic: [facility] Jaundice: Yes Past Experience Past Experience: No Current Frequency of Day Feedings: every 2-2.5 hours Frequency of Night Feedings: every 3 hours Both Breasts: Yes (both offered, harder to get him latched to her right side) Suck: strong Latch: mom's not sure Length of Time: 10-15 min ea side Pumping Pumping: Yes Quantity Pumped: 1/2-1 oz after nursing, needed for supplementing Supplementing EBM Supplement: Yes (1/-2 oz after nursing) Formula Supplement: Yes (if not enough EBM) Baby Elimination Number of Wet Diapers a Day: ea feeding Number of BM a Day: 6 or more, yellow in color Breast/Nipple Condition Breast Information: Breasts are symmetrical with rounded lower quadrants, intramammary distance is less than 1.5 inches. No erythema. Nipples are supple, everted prior to feeding. Nipples measured for flange size; both RIGHT and LEFT are 20mm in diameter Breast Shape: Round and Pendulous Engorgement: No Maternal Nipple Condition - Left: Common Nipple Maternal Nipple Condition - Right: Common Nipple Sore Nipples: No Baby Assessment Skin: Yellow (to abdomen; better than yesterday per parents) Tongue/frenulum: Normal/elastic Palate: Average Lips: Relaxed and Symmetrical Jaw Alignment: Symmetrical Mucosa: [place], moist Onsite Observation Pre-Feed weight: 3.152 kg Post-Feed weight: 3.182 kg Milk Transferred (mL): 30 Position: Cross cradle (RIGHT) and Football (LEFT) Attachment/latch-on achieved: With difficulty Suck pattern: Suck burst and normal rest Swallow: Audible, consistent Behavior following feed: Alert, content Pre-Nursing Left Nipple: Within Normal Limits Pre-Nursing Right Nipple: Within Normal Limits Post-Nursing Left Nipple: Within Normal Limits Post-Nursing Right Nipple: Within Normal Limits Assessments/Interventions Assessments/Interventions: Worked with mom/taught asymmetrical latch technique and a breast sandwich for a wide, deep latch and mom reports increased comfort with this. Reviewed in both football and cross cradle hold. Jacoby nursed on mom's RIGHT side for 10 min and transferred 16 ml; then nursed on her LEFT side for 15 min and transferred 14 ml, although mom gets more from her left side than her right when she pumps. Worked with mom on the positioning of her hands on her breast to make it easier for her to bring baby to the breast and maintain a deeper latch. Demonstrated breast compression to use while Jesus is nursing to increase milk transfer to the baby and help keep him engaged in feeding. Education provided: Early feeding cues to maximize timing of latching, Asymmetric latch technique for wide/deep latch to increase milk, Transfer for baby and increase comfort for mom, Supply/demand nature of milk supply, Need for frequent stimulation/milk removal, Alternative feeding methods (SNS, cup, finger feeding, bottling) (Paced bottle feeding) and Pumping for milk management (Pumping after feedings as able to stimulate supply AND to have EBM for baby while supplement is needed) Feeding Plan: Breastfeed for 10-15 on each breast, listening for active swallowing Pump both breasts for: 10-15 minutes after each feeding; a full 20 minutes if pumping instead of Feed baby 15-30 ml of pumped milk and/or formula every 2-3 hours based on feeding cues Use a syringe/feeding tube, cup, or bottle for feedings based on preference Rest, and repeat every 2-3 hours, watch for early feeding cues Try skin to skin to increase milk production Flange size of 24 mm discussed given nipple size of 20mm Pump settings reviewed Follow-Up Suggested follow up: Appointment in 1-3 days Recommend baby be seen by provider for:: keep weight check appt for tomorrow Time Spent Time spent with patient (min): 75 (reviewing EMR and face to face with patient, and ) Meds Home Medications and Allergies Home Medications ?Medication ?Instructions ?Recorded ?Confirmed ?Type cholecalciferol (vitamin D3) 25 25 mcg PO QDAY 10/09/23 04/30/24 History mcg (1,000 unit) capsule docosahexaenoic acid 200 mg 200 mg PO DAILY 10/09/23 04/30/24 History capsule ( DHA) valacyclovir 500 mg tablet 500 mg PO QDAY 10/25/23 04/30/24 History (Valtrex) calcium carbonate (Calcium 600) 600 mg PO QDAY 04/16/24 04/30/24 History Allergies Allergy/AdvReac Type Severity Reaction Status Date / Time morphine AdvReac Intermediate Vomiting Verified 04/30/24 12:52
== END 2024-05-08 10:48 | disposition home or self-care (01) ==
LOC: OB LAC 10:47
PROVIDERS: PCP Nurse Practitioner Family; Visit Provider Obstetrics & Gynecology
DX: Z39.1 Encounter for care and examination of lactating mother (principal)
CPT/HCPCS: G0463

== ENCOUNTER 2024-05-13 10:56 | Outpatient (CLI) | payer OTHER, SELFPAY ==
--- OUTSIDE RECORDS SUMMARY | 2024-05-13 10:59 | XMS_ITS | Clinical Summary ---
Author Organization [facility] Address [address] [place] [address] Care Team Providers Care Wind Up Worker Name Role Phone Elsewhere, Pcp Primary Care Provider Unavailabl e Source Comments Patient records contain information from all sites at [facility]. For routine questions regarding patient records, call [phone] during business hours, M-F 8:00 AM - 5:00 PM Central Time. Record requests for emergency care only can be directed to [phone] at any time.[facility] Allergies No known active allergies Medications valACYclovir [...] living situation today? 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
--- OUTSIDE RECORDS SUMMARY | 2024-05-13 10:59 | XMS_ITS | Referral Summary ---
Author Organization [facility] Address [address] [place] [address] Care Team Providers Care Library Helper Name Role Phone Elsewhere, Pcp Primary Care Provider Unavailabl e Source Comments Patient records contain information from all sites at [facility]. For routine questions regarding patient records, call [phone] during business hours, M-F 8:00 AM - 5:00 PM Central Time. Record requests for emergency care only can be directed to [phone] at any time.[facility] [...] your living situation today? 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
--- OUTSIDE RECORDS SUMMARY | 2024-05-13 10:59 | XMS_ITS ---
Author Organization [facility] Address [address] [place] [address] Care Team Providers Care High School Band Director Name Role Phone Unavailable Unavailable Unavailable Surgery Details Not on file Complications Check Surgery Details section. Procedure Estimated Blood Loss Check Surgery Details section. Procedure Findings Check Surgery Details section. Procedure Specimens Taken Check Surgery Details section.
--- NOTE | 2024-05-13 12:59 | W.PM.LAC.MF ---
Follow-Up Note: Mom Date of visit Date of visit: 05/13/24 Reason for consultation: Assistance Needed Visit Code: Visit Patient's Information Allergies morphine Adverse Reaction (Intermediate, Verified 04/30/24 12:52) Vomiting Change in mother's history since last visit: discomfort near what she thinks is her urethral tear; not awful just noticing it more. Delivery Information Delivery type: Vaginal Gestational Age: 38+1 Gestational Weight For Age: AGA Weight: 3.232 kg (confirmed this is the actual birthweight (entered wrong in one part of baby's chart)) Last Weight: 3.17 kg Baby's Information Baby's name: Jesus Baby's Age at Visit: 12 days Baby's Provider or Clinic: [facility] Current Frequency of Day Feedings: every 2-2.5 hours Frequency of Night Feedings: every 3 hours Both Breasts: Yes Suck: strong Latch: good; can take a bit to get him on Length of Time: 15 min or so ea breast Pumping Pumping: Yes Quantity Pumped: 1-2.5 oz depending on if baby fed first or not Supplementing EBM Supplement: Yes (takes 1 oz about every 3rd feeding right now) Formula Supplement: No Baby Elimination Number of Wet Diapers a Day: ea feeding Number of BM a Day: 5-6 minimum/day; yellow and seedy Breast/Nipple Assessment Engorgement: No Maternal Nipple Condition - Left: Common Nipple Maternal Nipple Condition - Right: Common Nipple Sore Nipples: No Onsite Observation Pre-feed weight: 3.276 kg (up 106gms in 4 days) Post-Feed weight: 3.326 kg Milk Transferred (mL): 50 Pre-Nursing Left Nipple: Within Normal Limits Pre-Nursing Right Nipple: Within Normal Limits Post-Nursing Left Nipple: Within Normal Limits Post-Nursing Right Nipple: Within Normal Limits Assessments/Interventions Assessments/Interventions: Jacoby nursed for 15 min on RIGHT breast, transferred 22 ml and then came off; would not relatch that side. Did work to get baby on a little deeper so he is on the breast more, and therefore transferring milk better. Jacoby then nursed for 20 min on LEFT breast, on and off a few times before he wouldn't latch again. Transferred 28 ml; increase in swallowing noted near end of feeding when breast compression utilized. Discussed breast massage prior to pumping and hands on pumping when mom does pump Feed every 2-3 hours, follow his cues; ok to go a 4 hr stretch at night if he wants to now that he is past birthweight Mom to try and slowdown on the pumping so baby has more milk when he comes to the breast. Ensure wide, deep latch for most successful feed. Recommend she feed him and then pump for the first morning feed, then just feed baby every 2-3 hours. If baby has a feeding that he cues he is still hungry, dad to feed EBM from the milk she already has pumped and then mom to pump that feeding to build supply vs pumping after every feeding. Monitor voids and stools. Check in with in 4-5 days if this doesn't seem to be working well. Discussed mother's milk tea (has some at home); ok to try. May or may not increase supply. Most important to feed baby with wide, deep latch and keep hydration and food intake for mom up. Discussed discomfort she has near urethral tear: be sure to mention at 2 week check up tomorrow. Recommend tub bath soak 1-2 times/day for healing; can add plain epsom salt to the water for soothing as well Education provided: Early feeding cues to maximize timing of latching, Asymmetric latch technique for wide/deep latch to increase milk, Transfer for baby and increase comfort for mom, Need for frequent stimulation/milk removal and Milk collection, storage Follow-Up Suggested follow up: Appointment as needed Recommend baby be seen by provider for:: 05/14 for circumcision, weight check Recommend mom be seen by provider for:: 05/14 for 2 week check Time Spent Time spent with patient (min): 90 Meds Home Medications and Allergies Home Medications ?Medication ?Instructions ?Recorded ?Confirmed ?Type cholecalciferol (vitamin D3) 25 25 mcg PO QDAY 10/09/23 04/30/24 History mcg (1,000 unit) capsule docosahexaenoic acid 200 mg 200 mg PO DAILY 10/09/23 04/30/24 History capsule ( DHA) valacyclovir 500 mg tablet 500 mg PO QDAY 10/25/23 04/30/24 History (Valtrex) calcium carbonate (Calcium 600) 600 mg PO QDAY 04/16/24 04/30/24 History Allergies Allergy/AdvReac Type Severity Reaction Status Date / Time morphine AdvReac Intermediate Vomiting Verified 04/30/24 12:52
== END 2024-05-13 10:57 | disposition home or self-care (01) ==
LOC: OB LAC 10:57
PROVIDERS: PCP Nurse Practitioner Family; Visit Provider Obstetrics & Gynecology
DX: Z39.1 Encounter for care and examination of lactating mother (principal)
CPT/HCPCS: G0463

== ENCOUNTER 2024-08-22 10:11 | Outpatient (CLI) | payer BC, SELFPAY ==
[2024-08-22 15:42] LABS: Chlamydia DNA Amplified* NOT DETECTED (No Detected); GC DNA Amplified* NOT DETECTED (No Detected)
== END 2024-08-22 10:12 | disposition home or self-care (01) ==
PROVIDERS: PCP Nurse Practitioner Family; Visit Provider Obstetrics & Gynecology
DX: R39.89 Other symptoms and signs involving the genitourinary system (principal); N90.89 Other specified noninflammatory disorders of vulva and perineum
CPT/HCPCS: 87491; 87591

== ENCOUNTER 2025-06-09 13:18 | Outpatient (CLI) | payer BC, SELFPAY ==
--- NOTE | 2025-06-09 13:20 | CRLHL7_ITS ---
For Patients: As a result of the Cures Act, medical imaging exams and procedure reports are released immediately into your electronic medical record. You may view this report before your referring provider. If you have questions, please contact your health care provider. INDICATION: BILATERAL SCREENING MAMMOGRAM, ASYMPTOMATIC 30 Y/O FEMALE COMPARISON: None. BASELINE TECHNIQUE: Digital mammogram in CC and MLO projections including computer-aided detection (CAD) and tomosynthesis. BREAST COMPOSITION: There are scattered areas of fibroglandular density. FINDINGS: No suspicious findings. ASSESSMENT: BI-RADS 1 Negative RECOMMENDATION: Annual screening mammogram. A lay language report of this examination will be provided to the patient. Dictated by: Amairani Santiago MD @ 06/10/2025 21:44:01 (Electronically Signed)
== END 2025-06-09 13:19 | disposition home or self-care (01) ==
LOC: MAMMO 13:19
PROVIDERS: PCP Nurse Practitioner Family; Visit Provider Family Medicine
DX: Z12.31 Encounter for screening mammogram for malignant neoplasm of breast (principal)
CPT/HCPCS: 77063; 77067